=== PATIENT | female | born 1955 | race Caucasian/White ===

== ENCOUNTER 2016-05-09 18:01 | Emergency (ER) | payer OTHER, MEDICAID ==
[~2016-05-09] VITALS: Ht 162.6 cm; Wt 80.0 kg
[~2016-05-09 18:01] MED LIST: ACET325T PO; AMBI10TA PO; AMLO10TA2 PO; B-COCAP9 PO; BUPR150XL PO; CHEL50TA PO; CITRTAB7 PO; CYCL1TAB29 PO; DOXE50CA3 PO; ENOX40P SQ; GEMF600 PO; HYDR-3534 PO; HYDR-3583 PO; LISI-515 PO; LYRI100C PO; MAGN250T2 PO; METF1000 PO; MULT1TAB84 PO; NEXI40CA PO; OMEG100010 PO; OXYB5TAB10 PO; PRAV40TA2 PO; SITA1TAB2 PO; TRAM50TA PO; VITA100018 PO; WALKER WHEELS/F1 MIS
[2016-05-09 18:05] VITALS: BP 118/93; PULSE 104; RESP 16; TEMP 98.7; O2SAT 95
== END 2016-05-09 21:15 | disposition left against medical advice (07) ==
LOC: NED 18:01
DX: M79.89 Other specified soft tissue disorders (principal)
CPT/HCPCS: 99281

== ENCOUNTER 2016-05-09 21:42 | Emergency (ER) | payer OTHER, MEDICAID ==
[~2016-05-09] VITALS: Ht 162.6 cm; Wt 81.3 kg
[2016-05-09 21:59] VITALS: BP 152/73; PULSE 104; RESP 16; TEMP 98.6; O2SAT 96
[2016-05-10 01:33] LABS: AUTOMATED NEUTROPHIL # 3.4 TH/MM3 (1.8-7.7); BASOPHIL % 0.4 % (0.0-2.0); EOSINOPHIL # 0.1 TH/MM3 (0-0.4); EOSINOPHIL % 2.1 % (0.0-4.0); HEMATOCRIT 33.8 % (35.0-46.0); HEMO FLAGS DIFF FINAL; LYMPH % 35.7 % (9.0-44.0); LYMPHOCYTE # 2.4 TH/MM3 (1.0-4.8); MEAN CELL VOLUME 82.6 FL (80.0-100.0); MEAN CORPUSCULAR HEMOGLOBIN 27.5 PG (27.0-34.0); MEAN CORPUSCULAR HGB CONC 33.2 % (32.0-36.0); MONO % 11.8 % (0.0-8.0); PLATELET COUNT 419 TH/MM3 (150-450); RED BLOOD COUNT 4.09 MIL/MM3 (4.00-5.30); RED CELL DISTRIBUTION WIDTH 13.6 % (11.6-17.2); WHITE BLOOD COUNT 6.7 TH/MM3 (4.0-11.0)
[2016-05-10 01:43] LABS: BICARBONATE 26.3 MEQ/L (21.0-32.0)
[2016-05-10 02:20] VITALS: BP 152/85; PULSE 92; RESP 16; O2SAT 96
--- NOTE | 2016-05-10 02:37 | PD ---
HPI Chief Complaint: Wound/Suture/Staple Re-Check Time Seen by Provider: 01:00 Travel History International Travel<30 days: No Contact w/Intl Traveler<30days: No Traveled to known affect area: No History of Present Illness HPI 60-year-old female presents to the emergency department by private transportation the care of her spouse for evaluation of pain and swelling localized to the right ankle overlying the lateral malleolus. 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 Patient underwent surgery October 2015 in April 2016 due to complications associated with this remote ankle injury. Patient was recently discharged from the hospital after surgical removal of plates and screws from the right ankle. Patient completed a course of outpatient IV vancomycin May 05; patient has 4 additional days of vancomycin available to be administered IV via her PICC line but has not used this medication. Patient has not been able to supposedly get into her managing physicians. Patient supposedly had her home health nurse contact her managing provider is Dr. Wallace her orthopedist and Dr. Quinones her infectious disease specialist but did not call the providers herself once she started noticing problems again with her ankle. Patient is diabetic. Patient has had no fever or chills. No ascending erythema. No groin pain. The patient rates her pain 10 over 10 intensity. PFSH Past Medical History Narrative Medical Lovenox, anxiety depression, dyslipidemia, diabetes, hypertension, ankle fracture, osteomyelitis right ankle, fibromyalgia, headache, peptic ulcer disease; no tobacco use no alcohol use; nursing notes reviewed Hx Anticoagulant Therapy: Yes (LOVENOX SQ) Arthritis: Yes Asthma: No Autoimmune Disease: No Anxiety: Yes Depression: Yes Heart Rhythm Problems: No Cancer: No Cardiovascular Problems: Yes High Cholesterol: Yes Chemotherapy: No Chest Pain: No Congestive Heart Failure: No COPD: No Cerebrovascular Accident: No Diabetes: Yes Patient Takes Glucophage: Yes Diminished Hearing: No Endocrine: No Fibromyalgia: Yes Gastrointestinal Disorders: Yes (GERD) GERD: No Genitourinary: No Headaches: Yes Hiatal Hernia: Yes Hypertension: Yes Immune Disorder: No Kidney Stones: No Musculoskeletal: Yes Neurologic: Yes Psychiatric: Yes Reproductive: No Respiratory: No Immunizations Current: Yes Migraines: Yes Radiation Therapy: No Renal Failure: No Seizures: No Sickle Cell Disease: No Sleep Apnea: No Thyroid Disease: No Ulcer: Yes (peptic) ?: Not Menopausal: Yes Past Surgical History Abdominal Surgery: No AICD: No Arteriovenous Shunt: No Cardiac Surgery: No Ear Surgery: No Endocrine Surgery: No Eye Surgery: No Genitourinary Surgery: No Gynecologic Surgery: Yes Hysterectomy: No Insulin Pump: No Joint Replacement: No Oral Surgery: No Pacemaker: No Thoracic Surgery: No Tonsillectomy: Yes Other Surgery: Yes Social History Alcohol Use: No (NONE) Tobacco Use: No (FORMER) Substance Use: No Allergies-Medications (Allergen,Severity, Reaction): Coded Allergies: Naproxen (Verified Allergy, Severe, Anaphylaxis, 05/10/16) Sulfa (Verified Allergy, Severe, unknown, 05/10/16) Reported Meds & Prescriptions Reported Meds & Active Scripts Active Walker with Front Wheels (Device) 1 Mis Mis 1 Ea .ROUTE DIRECTED Hydrocodone-Acetaminophen 10-325 mg Tab 1 Tab PO Q6H PRN Lovenox Inj (Enoxaparin Sodium) 40 Mg/0.4 Ml Syr 40 Mg SQ Q24H Reported Ditropan (Oxybutynin Chloride) 5 Mg Tab 2.5 Mg PO DAILY Lisinopril 20 Mg Tab 20 Mg PO BID 1st dose at 530pm 2nd dose at 1030pm Amlodipine (Amlodipine Besylate) 10 Mg Tab 10 Mg PO DAILY Doxepin (Doxepin HCl) 50 Mg Cap 50 Mg PO HS Ambien (Zolpidem Tartrate) 10 Mg Tab 10 Mg PO HS PRN Lortab (Hydrocodone-Acetaminophen) 7.5-325 Mg Tab 1 Tab PO Q8HR PRN Tramadol (Tramadol HCl) 50 Mg Tab 50 Mg PO Q6H PRN Flexeril (Cyclobenzaprine HCl) 10 Mg Tab 10 Mg PO TID Wellbutrin Xl 24 HR (Bupropion HCl) 150 Mg Tab 150 Mg PO BID Vitamin D3 (Cholecalciferol) 1,000 Unit Tab 1,000 Units PO DAILY Citracal + D3 Maximum (Calcium Citrate-Vitamin D) 315-250 Mg-Unit Tab 1 Tab PO DAILY Nexium (Esomeprazole DR) 40 Mg Capdr 40 Mg PO DAILY Lopid (Gemfibrozil) 600 Mg Tab 600 Mg PO BIDAC Take 30 minutes prior to breakfast and dinner Lyrica (Pregabalin) 100 Mg Cap 100 Mg PO TID Magnesium 250 Mg Tab 250 Mg PO DAILY Metformin (Metformin HCl) 1,000 Mg Tab 1,000 Mg PO BIDPC With meals Multivitamin Adults (Multiple Vitamins W/ Minerals) 1 Tab 1 Tab PO DAILY [place] 3 1000 mg ([place]-3 Fatty Acids) 1 Cap Cap 1 Cap PO DAILY Pravastatin 40 Mg Tab 80 Mg PO HS Januvia (Sitagliptin Phosphate) 100 Mg Tab 100 Mg PO DAILY Super B-Complex (B-Complex W/Biotin & Folic Acid) 1 Cap 1 Cap PO DAILY Zinc (Zinc Gluconate) 50 Mg Tab 1 Tab PO DAILY Acetaminophen 325 Mg Tab 650 Mg PO BID PRN Narrative Medication vancomycin 1.25 GM ivpb daily PICC Review of Systems Except as stated in HPI: all other systems reviewed are Neg General / Constitutional: No: Fever, Chills Cardiovascular: No: Chest Pain or Discomfort Respiratory: No: Shortness of Breath Gastrointestinal: No: Vomiting Genitourinary: No: Flank Pain Musculoskeletal: Positive: Edema (right ankle), No: Myalgias, Arthralgias Skin: No Rash Hematologic/Lymphatic: No: Lymph Node Enlargement Physical Exam Narrative GENERAL: Well-developed well-nourished female in no acute distress no respiratory distress SKIN: Warm and dry. HEAD: Normocephalic. EYES: No scleral icterus. No injection or drainage. NECK: Supple, trachea midline. No JVD or lymphadenopathy. CARDIOVASCULAR: Regular rate and rhythm without murmurs, gallops, or rubs. RESPIRATORY: Breath sounds equal bilaterally. No accessory muscle use. GASTROINTESTINAL: Abdomen soft, non-tender, nondistended. MUSCULOSKELETAL: No cyanosis, or edema. Attention right lower extremity overlying the lateral malleolus there is a 7 cm linear postoperative wound with secondary healing dried crusting noted no purulent drainage mild erythema and mild focal induration with minimal tenderness to palpation no crepitus no fluctuance. Dorsalis pedis pulse 2+ to palpation. BACK: Nontender without obvious deformity. No CVA tenderness. Data Data Last Documented VS Vital Signs Date Time Temp Pulse Resp B/P Pulse Ox O2 Delivery O2 Flow Rate FiO2 05/10/16 02:20 92 16 152/85 96 Room Air 05/09/16 21:59 98.6 Orders Complete Blood Count With Diff (05/10/16 01:00) Basic Metabolic Panel (Bmp) (05/10/16 01:00) Wound Culture And Gram Stain (05/10/16 01:00) ^ Saline Lock (05/10/16 01:00) Ct Ankle W Iv Contrast (05/10/16 ) Labs Laboratory Tests Test 05/10/16 01:15 White Blood Count 6.7 TH/MM3 Red Blood Count 4.09 MIL/MM3 Hemoglobin 11.2 GM/DL Hematocrit 33.8 % Mean Corpuscular Volume 82.6 FL Mean Corpuscular Hemoglobin 27.5 PG Mean Corpuscular Hemoglobin 33.2 % Concent Red Cell Distribution Width 13.6 % Platelet Count 419 TH/MM3 Mean Platelet Volume 7.3 FL Neutrophils (%) (Auto) 50.0 % Lymphocytes (%) (Auto) 35.7 % Monocytes (%) (Auto) 11.8 % Eosinophils (%) (Auto) 2.1 % Basophils (%) (Auto) 0.4 % Neutrophils # (Auto) 3.4 TH/MM3 Lymphocytes # (Auto) 2.4 TH/MM3 Monocytes # (Auto) 0.8 TH/MM3 Eosinophils # (Auto) 0.1 TH/MM3 Basophils # (Auto) 0.0 TH/MM3 CBC Comment DIFF FINAL Differential Comment Sodium Level 139 MEQ/L Potassium Level 4.0 MEQ/L Chloride Level 103 MEQ/L Carbon Dioxide Level 26.3 MEQ/L Anion Gap 10 MEQ/L Blood Urea Nitrogen 9 MG/DL Creatinine 0.65 MG/DL Estimat Glomerular Filtration 94 ML/MIN Rate Random Glucose 177 MG/DL Calcium Level 9.5 MG/DL MDM Medical Decision Making Medical Screen Exam Complete: Yes Emergency Medical Condition: Yes Medical Record Reviewed: Yes Interpretation(s) CBC with automated differential: Values normal range Metabolic panel: Values grossly within normal range CT right ankle: INDINGS: There is some induration of the subcutaneous fat along the lateral aspect of the leg at site of hardware removal. No drainable fluid collections seen. Deformity of the fibula corresponding to the screw tracks. No destructive lesions seen. No retained radiopaque foreign bodies. CONCLUSION: Subcutaneous soft tissue swelling lateral aspect of leg. No drainable fluid collections. Ahsan Torres MD on May 10, 2016 at 2:57 Board Certified Radiologist. This report was verified electronically. Differential Diagnosis Ankle pain, cellulitis, abscess, septic arthritis, osteomyelitis, chronic pain syndrome Narrative Course 60-year-old female presents to the emergency department with mild erythema with focal induration at the postop site without active drainage or purulent drainage and mild tenderness to direct palpation with neighboring soft tissue edema no ascending erythema. No increased warmth. No crepitus. No fluctuance. Imaging studies ordered along with basic labs there is no drainage to obtain a wound culture. Diagnosis Primary Impression: Right ankle swelling Additional Impression: Cellulitis Qualified Code: L03.115 - Cellulitis of right lower extremity Referrals: Infectious Disease Specialist 2 days Orthopedist 2 days Patient Instructions: General Instructions Additional Instructions: elevate foot complete course of antibiotic recheck x 1 day in the ED or for any concerns Take acetaminophen/Tylenol as needed for fever 100.4F or greater Med/Other Pt SpecificInfo: No Change to Meds Disposition: 01 DISCHARGE HOME Condition: Stable Nay Morel MD May 10, 2016 02:37
--- NOTE | 2016-05-10 03:05 | RADHPO ---
EXAM DATE/TIME: 05/10/2016 02:07 [facility] COMPARISON: CT ANKLE RIGHT W CONTRAST, October 28, 2015, 14:27. INDICATIONS : Lateral right ankle hardware removed one month ago. Redness and swelling at incision site for one wee k. IV CONTRAST: 95 cc Omnipaque 300 (iohexol) IV RADIATION DOSE: 6.13 CTDIvol (mGy) MEDICAL HISTORY : Hypertension. Diabetes SURGICAL HISTORY : Right ankle fracture repair. ENCOUNTER: Initial ACUITY: 4 - 6 months PAIN SCALE: 7/10 LOCATION: Right ankle TECHNIQUE: Volumetric scanning of the ankle was performed. Using automated exposure control and adjustment of t he mA and/or kV according to patient size, radiation dose was kept as low as reasonably achievable to obtain optimal diagnostic quality images. FINDINGS: There is some induration of the subcutaneous fat along the lateral aspect of the leg at site of hardw are removal. No drainable fluid collections seen. Deformity of the fibula corresponding to the scre w tracks. No destructive lesions seen. No retained radiopaque foreign bodies. CONCLUSION: Subcutaneous soft tissue swelling lateral aspect of leg. No drainable fluid collections. Ahsan Torres MD on May 10, 2016 at 2:57 Board Certified Radiologist. This report was verified electronically.
[2016-05-10 04:05] VITALS: BP 150/72; PULSE 92; RESP 18; O2SAT 96
== END 2016-05-10 04:06 | disposition home or self-care (01) ==
LOC: PHED 21:42
DX: M25.471 Effusion, right ankle (principal); L03.115 Cellulitis of right lower limb; E11.9 Type 2 diabetes mellitus without complications; I10 Essential (primary) hypertension; E78.00 Pure hypercholesterolemia, unspecified
CPT/HCPCS: 73701; 80048; 85025

== ENCOUNTER 2016-05-19 15:54 | Inpatient (IN) | payer OTHER, MEDICAID, MEDICARE ==
[~2016-05-19] VITALS: Ht 162.6 cm; Wt 81.6 kg
[2016-05-19 16:15] VITALS: BP 115/73; PULSE 115; RESP 18; TEMP 99.3; O2SAT 95
[2016-05-19] MEDS ORDERED: CIPR250T52 PO (16:53)
[2016-05-19] MEDS ORDERED: CEFU1TAB20 PO (16:53)
[2016-05-19 17:22] VITALS: O2SAT 97
--- NOTE | 2016-05-19 17:28 | PD ---
HPI Chief Complaint: Skin Problem Time Seen by Provider: 17:05 Travel History International Travel<30 days: No Contact w/Intl Traveler<30days: No Traveled to known affect area: No History of Present Illness HPI 60-year-old female complains of increasing pain swelling and redness right ankle. Patient status post right ankle surgery which required placement screw in the past. Patient subsequently developed osteomyelitis of the distal fibula. Patient underwent surgery in October 2015 and the April 2016. Patient has surgery for Surgical removed of the plate and screw on the right ankle. Patient was put on IV antibiotics including vancomycin in the hospital and outpatient via PICC line. Patient just finished IV vancomycin on May 13. Patient was seen by Dr. Wallace on May 13 and put on Cipro. Patient was seen by Dr. Quinones, infectious disease on May 15 and cefuroxime was added to the antibiotic regimen. Patient states that she has increasing pain swelling and redness of right ankle since then. Patient states the pain is severe pain burning pain localized lateral aspect the right ankle. Patient denies any pain radiation. On a scale of 1-10 the pain is a 10. PFSH Past Medical History Hx Anticoagulant Therapy: Yes (LOVENOX SQ) Arthritis: Yes Asthma: No Autoimmune Disease: No Anxiety: Yes Depression: Yes Heart Rhythm Problems: No Cancer: No Cardiovascular Problems: Yes (HTN) High Cholesterol: Yes Chemotherapy: No Chest Pain: No Congestive Heart Failure: No COPD: No Cerebrovascular Accident: No Diabetes: Yes (TYPE 2) Patient Takes Glucophage: Yes Diminished Hearing: No Endocrine: No Fibromyalgia: Yes Gastrointestinal Disorders: Yes (GERD) GERD: No Genitourinary: No Headaches: Yes Hiatal Hernia: Yes Hypertension: Yes Immune Disorder: No Kidney Stones: No Musculoskeletal: Yes Neurologic: Yes Psychiatric: Yes Reproductive: No Respiratory: No Immunizations Current: Yes Migraines: Yes Radiation Therapy: No Renal Failure: No Seizures: No Sickle Cell Disease: No Sleep Apnea: No Thyroid Disease: No Ulcer: Yes (peptic) Tetanus Vaccination: > 5 Years Influenza Vaccination: Yes ?: Not Menopausal: Yes Past Surgical History Abdominal Surgery: No AICD: No Arteriovenous Shunt: No Cardiac Surgery: No Ear Surgery: No Endocrine Surgery: No Eye Surgery: No Genitourinary Surgery: No Gynecologic Surgery: Yes Hysterectomy: No Insulin Pump: No Joint Replacement: No Oral Surgery: No Pacemaker: No Thoracic Surgery: No Tonsillectomy: Yes Other Surgery: Yes Social History Alcohol Use: No (NONE) Tobacco Use: No (FORMER) Substance Use: No Allergies-Medications (Allergen,Severity, Reaction): Coded Allergies: Naproxen (Verified Allergy, Severe, Anaphylaxis, 05/19/16) Sulfa (Verified Allergy, Severe, unknown, 05/19/16) Reported Meds & Prescriptions Reported Meds & Active Scripts Active Walker with Front Wheels (Device) 1 Mis Mis 1 Ea .ROUTE DIRECTED Hydrocodone-Acetaminophen 10-325 mg Tab 1 Tab PO Q6H PRN Reported Cefuroxime (Cefuroxime Axetil) 500 Mg Tab 500 Mg PO BID Cipro (Ciprofloxacin HCl) 250 Mg Tab 250 Mg PO BID Ditropan (Oxybutynin Chloride) 5 Mg Tab 2.5 Mg PO DAILY Lisinopril 20 Mg Tab 20 Mg PO BID 1st dose at 530pm 2nd dose at 1030pm Amlodipine (Amlodipine Besylate) 10 Mg Tab 10 Mg PO DAILY Doxepin (Doxepin HCl) 50 Mg Cap 50 Mg PO HS Ambien (Zolpidem Tartrate) 10 Mg Tab 10 Mg PO HS PRN Lortab (Hydrocodone-Acetaminophen) 7.5-325 Mg Tab 1 Tab PO Q8HR PRN Tramadol (Tramadol HCl) 50 Mg Tab 50 Mg PO Q6H PRN Flexeril (Cyclobenzaprine HCl) 10 Mg Tab 10 Mg PO TID Wellbutrin Xl 24 HR (Bupropion HCl) 150 Mg Tab 150 Mg PO BID Vitamin D3 (Cholecalciferol) 1,000 Unit Tab 1,000 Units PO DAILY Citracal + D3 Maximum (Calcium Citrate-Vitamin D) 315-250 Mg-Unit Tab 1 Tab PO DAILY Nexium (Esomeprazole DR) 40 Mg Capdr 40 Mg PO DAILY Lopid (Gemfibrozil) 600 Mg Tab 600 Mg PO BIDAC Take 30 minutes prior to breakfast and dinner Lyrica (Pregabalin) 100 Mg Cap 100 Mg PO TID Magnesium 250 Mg Tab 250 Mg PO DAILY Metformin (Metformin HCl) 1,000 Mg Tab 1,000 Mg PO BIDPC With meals Multivitamin Adults (Multiple Vitamins W/ Minerals) 1 Tab 1 Tab PO DAILY [place] 3 1000 mg ([place]-3 Fatty Acids) 1 Cap Cap 1 Cap PO DAILY Pravastatin 40 Mg Tab 80 Mg PO HS Januvia (Sitagliptin Phosphate) 100 Mg Tab 100 Mg PO DAILY Super B-Complex (B-Complex W/Biotin & Folic Acid) 1 Cap 1 Cap PO DAILY Zinc (Zinc Gluconate) 50 Mg Tab 1 Tab PO DAILY Acetaminophen 325 Mg Tab 650 Mg PO BID PRN Review of Systems General / Constitutional: No: Fever Eyes: No: Visual changes HENT: No: Headaches Cardiovascular: No: Chest Pain or Discomfort Respiratory: No: Shortness of Breath Gastrointestinal: No: Abdominal Pain Genitourinary: No: Dysuria Musculoskeletal: Positive: Pain Skin: No Rash Neurologic: No: Weakness Psychiatric: No: Depression Endocrine: No: Polydipsia Hematologic/Lymphatic: No: Easy Bruising Physical Exam Narrative GENERAL: Well-nourished, well-developed patient. SKIN: Warm and dry. HEAD: Normocephalic. EYES: No scleral icterus. No injection or drainage. NECK: Supple, trachea midline. No JVD or lymphadenopathy. CARDIOVASCULAR: Regular rate and rhythm without murmurs, gallops, or rubs. RESPIRATORY: Breath sounds equal bilaterally. No accessory muscle use. GASTROINTESTINAL: Abdomen soft, non-tender, nondistended. MUSCULOSKELETAL: No cyanosis, or edema. BACK: Nontender without obvious deformity. No CVA tenderness. Patient has redness swelling tenderness lateral malleolus area and lateral aspect the right lower leg area. No discharge noted. Data Data Last Documented VS Vital Signs Date Time Temp Pulse Resp B/P Pulse Ox O2 Delivery O2 Flow Rate FiO2 05/19/16 19:16 94 18 160/74 96 Room Air 05/19/16 16:15 99.3 Orders Complete Blood Count With Diff (05/19/16 17:14) Comprehensive Metabolic Panel (05/19/16 17:14) Prothrombin Time / Inr (Pt) (05/19/16 17:14) Act Partial Throm Time (Ptt) (05/19/16 17:14) [place] Sedimentation Rate (05/19/16 17:14) Iv Access Insert/Monitor (05/19/16 17:14) Ecg Monitoring (05/19/16 17:14) Oximetry (05/19/16 17:14) Vancomycin Inj (Vancomycin Inj) (05/19/16 17:30) Ankle, Complete (Zmg5bst) (05/19/16 17:32) Morphine Inj (Morphine Inj) (05/19/16 19:45) Ondansetron Inj (Zofran Inj) (05/19/16 19:45) Admit To Inpatient (05/19/16 ) Vital Signs (Adult) Q4H (05/19/16 20:28) Activity Oob With Assistance (05/19/16 20:28) ^ Stone Carriage Operator / Telemetry .CONTINUOUS (05/19/16 20:28) Diet Heart Healthy (05/20/16 Breakfast) Sodium Chloride 0.9% Flush (Ns Flush) (05/19/16 20:30) Sodium Chloride 0.9% Flush (Ns Flush) (05/19/16 21:00) Basic Metabolic Panel (Bmp) (05/20/16 06:00) Complete Blood Count With Diff (05/20/16 06:00) Scd Bilateral/Knee High ELENI.BID (05/19/16 20:28) Naloxone Inj (Narcan Inj) (05/19/16 20:30) Inpatient Certification (05/19/16 ) Consult Infectious Disease (05/19/16 ) Vancomycin Consult Pharmacy (Vancomycin (05/19/16 20:30) Piperacil-Tazo 4.5 Gm Premix (Zosyn 4.5 (05/19/16 20:30) Lactobacillus Acidophilus (Lactinex) (05/20/16 09:00) Morphine Inj (Morphine Inj) (05/19/16 20:30) Bedside Glucose ELENI.AC&HS (05/19/16 20:30) ^ Blood Glucose Goal (Criteria (05/19/16 20:30) ^ Hypoglycemia 51 - 69 Mg/Dl (05/19/16 20:30) ^ Hypoglycemia 50 Mg/Dl Or < (05/19/16 20:30) ^ Notify Dr: Other (05/19/16 20:30) Dextrose 50% In Jonatan (Vial) Inj (D50w (Vi (05/19/16 20:30) Glucagon Inj (Glucagon Inj) (05/19/16 20:30) Insulin Aspart Supplemtl Scale (Novolog (05/19/16 21:00) Enalaprilat Inj (Vasotec Inj) (05/19/16 20:45) Labs Laboratory Tests Test 05/19/16 17:20 White Blood Count 8.1 TH/MM3 Red Blood Count 4.26 MIL/MM3 Hemoglobin 11.9 GM/DL Hematocrit 35.5 % Mean Corpuscular Volume 83.5 FL Mean Corpuscular Hemoglobin 28.0 PG Mean Corpuscular Hemoglobin 33.5 % Concent Red Cell Distribution Width 13.4 % Platelet Count 435 TH/MM3 Mean Platelet Volume 7.6 FL Neutrophils (%) (Auto) 55.8 % Lymphocytes (%) (Auto) 32.3 % Monocytes (%) (Auto) 9.2 % Eosinophils (%) (Auto) 2.3 % Basophils (%) (Auto) 0.4 % Neutrophils # (Auto) 4.6 TH/MM3 Lymphocytes # (Auto) 2.6 TH/MM3 Monocytes # (Auto) 0.7 TH/MM3 Eosinophils # (Auto) 0.2 TH/MM3 Basophils # (Auto) 0.0 TH/MM3 CBC Comment DIFF FINAL Differential Comment Erythrocyte Sedimentation Rate 24 mm/hr Prothrombin Time 10.4 SEC Prothromb Time International 0.9 RATIO Ratio Activated Partial 25.7 SEC Thromboplast Time Sodium Level 139 MEQ/L Potassium Level 4.5 MEQ/L Chloride Level 104 MEQ/L Carbon Dioxide Level 24.5 MEQ/L Anion Gap 11 MEQ/L Blood Urea Nitrogen 11 MG/DL Creatinine 0.78 MG/DL Estimat Glomerular Filtration 76 ML/MIN Rate Random Glucose 183 MG/DL Calcium Level 9.6 MG/DL Total Bilirubin 0.2 MG/DL Aspartate Amino Transf 11 U/L (AST/SGOT) Alanine Aminotransferase 21 U/L (ALT/SGPT) Alkaline Phosphatase 95 U/L Total Protein 8.1 GM/DL Albumin 4.0 GM/DL [facility] Medical Decision Making Medical Screen Exam Complete: Yes Emergency Medical Condition: Yes Medical Record Reviewed: Yes Interpretation(s) Last Impressions Ankle X-Ray 05/19/16 [id number] Signed Impressions: Service Date/Time: Thursday, May 19, 2016 17:48 - CONCLUSION: Mottled appearance with cortical irregularity of the distal fibula as above, nonspecific but osteomyelitis would be in the differential. Evidence of previous hardware removal. No definite change from the CT. Gene Ryder MD 2040 p.m. CBC within normal limit. Sedimentation rate 24. CMP within normal limit. Differential Diagnosis Differential diagnosis including cellulitis, osteomyelitis. Narrative Course 60-year-old female with increasing redness swelling tenderness lateral malleolus right ankle. Status post right ankle surgery with history of osteomyelitis. Patient just finished IV vancomycin and on Cipro and cefuroxime orally. Vancomycin 1 g IV given. Morphine 2 mg IV. Zofran 4 mg IV. Diagnosis Primary Impression: Cellulitis of right ankle Yahir Burch MD May 19, 2016 17:28
[2016-05-19] MEDS ORDERED: VANCOMYCIN INJ 1,000 MG in SODIUM CHLOR 0.9% 250 ML INJ 250 ML IV ONE (17:30)
[2016-05-19 17:33] LABS: AUTOMATED NEUTROPHIL # 4.6 TH/MM3 (1.8-7.7); BASOPHIL % 0.4 % (0.0-2.0); EOSINOPHIL # 0.2 TH/MM3 (0-0.4); EOSINOPHIL % 2.3 % (0.0-4.0); HEMATOCRIT 35.5 % (35.0-46.0); HEMO FLAGS DIFF FINAL; LYMPH % 32.3 % (9.0-44.0); LYMPHOCYTE # 2.6 TH/MM3 (1.0-4.8); MEAN CELL VOLUME 83.5 FL (80.0-100.0); MEAN CORPUSCULAR HGB CONC 33.5 % (32.0-36.0); MONO % 9.2 % (0.0-8.0); NEUT % 55.8 % (16.0-70.0); PLATELET COUNT 435 TH/MM3 (150-450); RED BLOOD COUNT 4.26 MIL/MM3 (4.00-5.30); RED CELL DISTRIBUTION WIDTH 13.4 % (11.6-17.2); WHITE BLOOD COUNT 8.1 TH/MM3 (4.0-11.0)
[2016-05-19 17:39] LABS: CHLORIDE 104 MEQ/L (98-107); POTASSIUM 4.5 MEQ/L (3.5-5.1); SODIUM (NA) 139 MEQ/L (136-145)
[2016-05-19 17:43] LABS: ANION GAP 11 MEQ/L (5-15); APTT (PATIENT) 25.7 SEC (24.3-30.1); BICARBONATE 24.5 MEQ/L (21.0-32.0); BLOOD UREA NITROGEN 11 MG/DL (7-18); INTERNATIONAL NORMALIZED RATIO 0.9 RATIO; PROTHROMBIN TIME - PATIENT 10.4 SEC (9.8-11.6)
[2016-05-19 17:46] LABS: ALT (GPT) 21 U/L (10-53); AST (GOT) 11 U/L (15-37); GLOMERULAR FILTRATION RATE 76 ML/MIN (>89)
[2016-05-19 17:47] LABS: TOTAL BILIRUBIN ADULT 0.2 MG/DL (0.2-1.0)
[2016-05-19 17:49] LABS: ALKALINE PHOSPHATASE 95 U/L (45-117)
--- NOTE | 2016-05-19 18:04 | RADHPO ---
EXAM DATE/TIME: 05/19/2016 17:48 [facility] COMPARISON: CT ANKLE RIGHT W CONTRAST, May 10, 2016, 2:07. INDICATIONS : Open wound right distal lower leg MEDICAL HISTORY : Diabetes mellitus type II. SURGICAL HISTORY : None. ENCOUNTER: Initial ACUITY: 3 days PAIN SCORE: 5/10 LOCATION: Right ankle FINDINGS: There is evidence of previously removed hardware of the distal fibula. Mottled patchy sclerosis and l ytic change seen of the distal 8 cm of the bone and overlying soft tissue swelling. There exosteal an d endosteal cortical irregularity. The findings appear fairly similar to the CT. CONCLUSION: Mottled appearance with cortical irregularity of the distal fibula as above, nonspecific but osteomye litis would be in the differential. Evidence of previous hardware removal. No definite change from e CT. Gene Ryder MD on May 19, 2016 at 18:00 Board Certified Radiologist. This report was verified electronically.
[2016-05-19 19:16] VITALS: BP 160/74; PULSE 94; RESP 18; O2SAT 96
[2016-05-19] MEDS ORDERED: MORPHINE SULFATE 4 MG/ML INJ IV PUSH ONE (19:45)
[2016-05-19] MEDS ORDERED: ONDANSETRON HCL 4 MG/2 ML VIAL IV PUSH ONE (19:45)
[2016-05-19] MEDS ORDERED: SODIUM CHLORIDE 0.9% FLUSH 5 ML FLUSH FLUSH PRN (20:30)
[2016-05-19] MEDS ORDERED: Vancomycin Consult Pharmacy 1 EA OTHER SCH (20:30)
[2016-05-19] MEDS ORDERED: DEXTROSE 50% IN WATER 50 ML VIAL(D50) IV PUSH PRN (20:30)
[2016-05-19] MEDS ORDERED: NALOXONE HCL 0.4 MG/ML AMP IV PRN (20:30)
[2016-05-19] MEDS ORDERED: GLUCAGON 1 MG/ML VIAL OTHER PRN (20:30)
[2016-05-19] MEDS ORDERED: ENALAPRILAT 2.5 MG/2 ML VIAL IV PUSH PRN (20:45)
[2016-05-19 21:00] VITALS: BP 121/61; PULSE 81; RESP 18; O2SAT 97
[2016-05-19] MEDS: INSULIN ASPART SUPPLEMENTAL SCALE SQ SCH (21:00)
[2016-05-19] MEDS: SODIUM CHLORIDE 0.9% FLUSH 5 ML FLUSH FLUSH SCH (21:43)
[2016-05-19] MEDS: PIPERACIL-TAZO 4.5 GM PREMIX 100 ML IV SCH (21:43)
[2016-05-19] MEDS: MORPHINE SULFATE 4 MG/ML INJ IV PUSH PRN (22:17)
[2016-05-19 22:55] VITALS: BP 118/68; PULSE 82; RESP 18; O2SAT 97
[2016-05-20] VITALS (7 sets, daily range): BP systolic 92–144; BP diastolic 64–80; PULSE 64–98; RESP 16–20; TEMP 96.2–98.7; O2SAT 91–97
[2016-05-20] MEDS ORDERED: CYCLOBENZAPRINE HCL 10 MG TAB PO ONE (01:30)
[2016-05-20] MEDS: MORPHINE SULFATE 4 MG/ML INJ IV PUSH PRN ×4 (02:01→18:42)
[2016-05-20] MEDS: PIPERACIL-TAZO 4.5 GM PREMIX 100 ML IV SCH ×4 (03:24→22:06)
[2016-05-20] MEDS: VANCOMYCIN 1,500 MG/NS 500 ML IV SCH ×2 (05:43)
[2016-05-20] MEDS: INSULIN ASPART SUPPLEMENTAL SCALE SQ SCH ×4 (05:47→22:23)
[2016-05-20 07:57] LABS: AUTOMATED NEUTROPHIL # 3.3 TH/MM3 (1.8-7.7); BASOPHIL % 0.4 % (0.0-2.0); EOSINOPHIL # 0.2 TH/MM3 (0-0.4); EOSINOPHIL % 2.6 % (0.0-4.0); HEMATOCRIT 32.2 % (35.0-46.0); LYMPH % 37.3 % (9.0-44.0); LYMPHOCYTE # 2.6 TH/MM3 (1.0-4.8); MEAN CELL VOLUME 83.7 FL (80.0-100.0); MEAN CORPUSCULAR HEMOGLOBIN 27.5 PG (27.0-34.0); MEAN CORPUSCULAR HGB CONC 32.9 % (32.0-36.0); NEUT % 48.7 % (16.0-70.0); PLATELET COUNT 407 TH/MM3 (150-450); RED BLOOD COUNT 3.85 MIL/MM3 (4.00-5.30); RED CELL DISTRIBUTION WIDTH 13.6 % (11.6-17.2); WHITE BLOOD COUNT 6.9 TH/MM3 (4.0-11.0)
[2016-05-20 07:58] LABS: HEMO FLAGS DIFF FINAL
[2016-05-20 08:04] LABS: POTASSIUM 3.9 MEQ/L (3.5-5.1)
[2016-05-20 08:08] LABS: BICARBONATE 26.5 MEQ/L (21.0-32.0)
[2016-05-20] MEDS: LACTOBACILLUS ACIDOPHILUS TAB PO SCH ×3 (08:58→17:01)
[2016-05-20] MEDS: SODIUM CHLORIDE 0.9% FLUSH 5 ML FLUSH FLUSH SCH ×2 (08:58→22:06)
[2016-05-20] MEDS ORDERED: ACETAMINOPHEN 325 MG TAB PO PRN (12:15)
[2016-05-20] MEDS ORDERED: ZOLPIDEM TARTRATE 10 MG TAB PO PRN (12:15)
[2016-05-20] MEDS: OXYBUTYNIN CHLORIDE 5 MG TAB PO SCH (12:52)
[2016-05-20] MEDS: LISINOPRIL 20 MG TAB PO SCH ×2 (12:52→22:07)
[2016-05-20] MEDS: PANTOPRAZOLE SOD 40 MG DELAYED RELEASE TAB PO SCH (12:52)
[2016-05-20] MEDS: buPROPion HCL 150 MG SUSTAINED RELEASE TAB PO SCH ×2 (12:52→22:07)
[2016-05-20] MEDS: PREGABALIN 100 MG CAP PO SCH ×2 (12:52→17:01)
[2016-05-20] MEDS: CYCLOBENZAPRINE HCL 10 MG TAB PO SCH ×2 (12:52→17:01)
--- NOTE | 2016-05-20 13:56 | HHI.HP ---
[facility] Service [facility] ([place], [place])ists Primary Care Physician Non-Staff Admission Diagnosis right ankle cellulitis. Rule out osteomyelitis. Diagnoses: Chief Complaint: Right ankle pain Travel History International Travel<30 Days: No Contact w/Intl Traveler <30 Da: No Traveled to Known Affected Are: No History of Present Illness Patient is a 60-year-old female with a history of right ankle surgery in the and recurrent infections of the same requiring antibiotics and surgical interventions. Patient did have osteomyelitis of the distal fibula and has been followed by Dr. Quinones and Dr. Jonas Sanchez. Previously the patient did have outpatient antibiotics both IV and was completing an oral course. She had home health evaluating her ankle and continue with wet-to-dry dressing changes as per J Ray 7 evaluation by Armin lopez. Patient says that she noted some changes in the ankle once her advised her discontinued and she called her infectious disease doctor also the home health nurse was concerned about some changes in the extremity and she was urged to come to the hospital. She has no leukocytosis and no fever however she has recently completed a long course of antibiotics. At this point patient is seen in the room with severe pain and burning around the leg which is relieved with her home narcotics and she is tearful and anxious that her ankle may be reinfected. Patient did have x-ray done which on my review does show some bony changes which will need to be followed by CT 2 also out abscess. For these reasons the patient was admitted to the hospital Past Family Social History Past Medical History Fibromyalgia Hypertension Polypharmacy Hyperlipidemia Chronic pain Diabetes mellitus type 2 Dyspepsia Allergies: Coded Allergies: Naproxen (Verified Allergy, Severe, Anaphylaxis, 05/19/16) Sulfa (Verified Allergy, Severe, unknown, 05/19/16) Physical Exam Vital Signs Vital Signs Date Time Temp Pulse Resp B/P Pulse Ox O2 Delivery O2 Flow Rate FiO2 05/20/16 12:15 97.3 92 17 139/72 93 05/20/16 08:23 96.5 88 17 92/80 91 05/20/16 04:00 98.7 95 18 109/64 92 05/20/16 02:00 64 05/20/16 00:05 85 18 97 05/20/16 00:00 97.3 95 18 144/79 94 05/20/16 00:00 97.3 95 18 144/79 94 05/19/16 22:55 82 18 118/68 97 Room Air 05/19/16 21:00 81 18 121/61 97 Room Air 05/19/16 19:16 94 18 160/74 96 Room Air 05/19/16 17:22 97 Room Air 05/19/16 16:15 99.3 115 18 115/73 95 Physical Exam GENERAL: This is a well-nourished, well-developed patient, in no apparent distress. SKIN: No rashes, ecchymoses or lesions. Cool and dry. HEAD: Atraumatic. Normocephalic. No temporal or scalp tenderness. EYES: Pupils equal round and reactive. Extraocular motions intact. No scleral icterus. No injection or drainage. ENT: Nose without bleeding, purulent drainage or septal hematoma. Throat without erythema, tonsillar hypertrophy or exudate. Uvula midline. Airway patent. NECK: Trachea midline. No JVD or lymphadenopathy. Supple, nontender, no meningeal signs. CARDIOVASCULAR: Regular rate and rhythm without murmurs, gallops, or rubs. RESPIRATORY: Clear to auscultation. Breath sounds equal bilaterally. No wheezes , rales, or rhonchi. GASTROINTESTINAL: Abdomen soft, non-tender, nondistended. No hepato-splenomegaly , or palpable masses. No guarding. MUSCULOSKELETAL: Mild right ankle erythema and dry open area above the lateral malleolus. Other 3 Extremities without clubbing, cyanosis, or edema. No joint tenderness, effusion, or edema noted. No calf tenderness. Negative Homans sign bilaterally. NEUROLOGICAL: Awake and alert. Cranial nerves II through XII intact. Motor and sensory grossly within normal limits. Five out of 5 muscle strength in all muscle groups. Normal speech. Laboratory Laboratory Tests Test 05/19/16 05/20/16 17:20 07:27 White Blood Count 8.1 6.9 Red Blood Count 4.26 3.85 Hemoglobin 11.9 10.6 Hematocrit 35.5 32.2 Mean Corpuscular Volume 83.5 83.7 Mean Corpuscular Hemoglobin 28.0 27.5 Mean Corpuscular Hemoglobin 33.5 32.9 Concent Red Cell Distribution Width 13.4 13.6 Platelet Count 435 407 Mean Platelet Volume 7.6 7.7 Neutrophils (%) (Auto) 55.8 48.7 Lymphocytes (%) (Auto) 32.3 37.3 Monocytes (%) (Auto) 9.2 11.0 Eosinophils (%) (Auto) 2.3 2.6 Basophils (%) (Auto) 0.4 0.4 Neutrophils # (Auto) 4.6 3.3 Lymphocytes # (Auto) 2.6 2.6 Monocytes # (Auto) 0.7 0.8 Eosinophils # (Auto) 0.2 0.2 Basophils # (Auto) 0.0 0.0 CBC Comment DIFF FINAL DIFF FINAL Differential Comment Erythrocyte Sedimentation Rate 24 Prothrombin Time 10.4 Prothromb Time International 0.9 Ratio Activated Partial 25.7 Thromboplast Time Sodium Level 139 141 Potassium Level 4.5 3.9 Chloride Level 104 105 Carbon Dioxide Level 24.5 26.5 Anion Gap 11 10 Blood Urea Nitrogen 11 11 Creatinine 0.78 0.65 Estimat Glomerular Filtration 76 94 Rate Random Glucose 183 124 Calcium Level 9.6 8.8 Total Bilirubin 0.2 Aspartate Amino Transf 11 (AST/SGOT) Alanine Aminotransferase 21 (ALT/SGPT) Alkaline Phosphatase 95 Total Protein 8.1 Albumin 4.0 Result Diagram: 05/20/1672605/20/16726 Imaging Last Impressions Ankle X-Ray 05/19/161731 Signed Impressions: Service Date/Time: Thursday, May 19, 2016 17:48 - CONCLUSION: Mottled appearance with cortical irregularity of the distal fibula as above, nonspecific but osteomyelitis would be in the differential. Evidence of previous hardware removal. No definite change from the CT. Gene Ryder MD Assessment and Plan Problem List: (1) Right ankle swelling ICD Code: M25.471 Status: Acute Plan: Patient with chronic trouble with her right ankle. We'll continue with CT of the ankle to rule out abscess. ID consultation pending Continue IV vancomycin and Zosyn Patient also with chronic pain from fibromyalgia which we will continue her home medications (2) DM2 (diabetes mellitus, type 2) ICD Code: E11.9 Status: Chronic Plan: The home medications, sliding scale insulin, diabetic diet (3) HTN (hypertension) ICD Code: I10 Status: Acute Plan: Continue amlodipine and lisinopril from home Assessment and Plan Plan of care to be determined by Hospital course Discussed Condition With ID , Dr sanchez Physician Certification 2 Midnight Certification Type: Admission for Inpatient Services Order for Inpatient Services The services are ordered in accordance with Medicare regulations or non- Medicare payer requirements, as applicable. In the case of services not specified as inpatient-only, they are appropriately provided as inpatient services in accordance with the 2-midnight benchmark. Estimated LOS (days): 3 3 days is the estimated time the patient will need to remain in the hospital, assuming treatment plan goals are met and no additional complications. Post-Hospital Plan: Home Christina Zaldivar MD May 20, 2016 13:56
[2016-05-20] MEDS ORDERED: IOHEXOL 350 MG/ML 10 ML VIAL (for RAD DIAG) IV ONE (15:09)
[2016-05-20] MEDS: METFORMIN HOLD POST IV CONTRAST XX SCH (16:15)
--- NOTE | 2016-05-20 16:18 | PD.CONS ---
History of Present Illness Service ID CONSULT DR MCKEON Consult Requested By Primary Care Physician Non-Staff Diagnoses: (1) Right ankle swelling (2) Cellulitis of right ankle (3) DM2 (diabetes mellitus, type 2) Review of Systems Constitutional: DENIES: Fatigue Respiratory: DENIES: Cough Cardiovascular: DENIES: Palpitations Musculoskeletal: DENIES: Muscle aches Hematologic/lymphatic: DENIES: Lymphadenopathy Immunologic/allergic: DENIES: Urticaria Neurologic: DENIES: Headache Psychiatric: DENIES: Confusion Past Family Social History Allergies: Coded Allergies: Naproxen (Verified Allergy, Severe, Anaphylaxis, 05/19/16) Sulfa (Verified Allergy, Severe, unknown, 05/19/16) Past Medical History Past Family Social History Past Medical History Fibromyalgia Hypertension Polypharmacy Hyperlipidemia Chronic pain Diabetes mellitus type 2 Dyspepsia Allergies: Coded Allergies: Naproxen (Verified Allergy, Severe, Anaphylaxis, 05/19/16) Sulfa (Verified Allergy, Severe, unknown, 05/19/16) Past Surgical History Past Surgical History Abdominal Surgery: No AICD: No Arteriovenous Shunt: No Cardiac Surgery: No Ear Surgery: No Endocrine Surgery: No Eye Surgery: No Genitourinary Surgery: No Gynecologic Surgery: Yes Hysterectomy: No Insulin Pump: No Joint Replacement: No Oral Surgery: No Pacemaker: No Thoracic Surgery: No Tonsillectomy: Yes Other Surgery: Yes Reported Medications Reported Meds & Prescriptions Reported Meds & Active Scripts Active Walker with Front Wheels (Device) 1 Mis Mis 1 Ea .ROUTE DIRECTED Hydrocodone-Acetaminophen 10-325 mg Tab 1 Tab PO Q6H PRN Reported Cefuroxime (Cefuroxime Axetil) 500 Mg Tab 500 Mg PO BID Cipro (Ciprofloxacin HCl) 250 Mg Tab 250 Mg PO BID Ditropan (Oxybutynin Chloride) 5 Mg Tab 2.5 Mg PO DAILY Lisinopril 20 Mg Tab 20 Mg PO BID 1st dose at 530pm 2nd dose at 1030pm Amlodipine (Amlodipine Besylate) 10 Mg Tab 10 Mg PO DAILY Doxepin (Doxepin HCl) 50 Mg Cap 50 Mg PO HS Ambien (Zolpidem Tartrate) 10 Mg Tab 10 Mg PO HS PRN Lortab (Hydrocodone-Acetaminophen) 7.5-325 Mg Tab 1 Tab PO Q8HR PRN Tramadol (Tramadol HCl) 50 Mg Tab 50 Mg PO Q6H PRN Flexeril (Cyclobenzaprine HCl) 10 Mg Tab 10 Mg PO TID Wellbutrin Xl 24 HR (Bupropion HCl) 150 Mg Tab 150 Mg PO BID Vitamin D3 (Cholecalciferol) 1,000 Unit Tab 1,000 Units PO DAILY Citracal + D3 Maximum (Calcium Citrate-Vitamin D) 315-250 Mg-Unit Tab 1 Tab PO DAILY Nexium (Esomeprazole DR) 40 Mg Capdr 40 Mg PO DAILY Lopid (Gemfibrozil) 600 Mg Tab 600 Mg PO BIDAC Take 30 minutes prior to breakfast and dinner Lyrica (Pregabalin) 100 Mg Cap 100 Mg PO TID Magnesium 250 Mg Tab 250 Mg PO DAILY Metformin (Metformin HCl) 1,000 Mg Tab 1,000 Mg PO BIDPC With meals Multivitamin Adults (Multiple Vitamins W/ Minerals) 1 Tab 1 Tab PO DAILY Henderson 3 1000 mg (Henderson-3 Fatty Acids) 1 Cap Cap 1 Cap PO DAILY Pravastatin 40 Mg Tab 80 Mg PO HS Januvia (Sitagliptin Phosphate) 100 Mg Tab 100 Mg PO DAILY Super B-Complex (B-Complex W/Biotin & Folic Acid) 1 Cap 1 Cap PO DAILY Zinc (Zinc Gluconate) 50 Mg Tab 1 Tab PO DAILY Acetaminophen 325 Mg Tab 650 Mg PO BID PRN Family History DM Social History Social History Alcohol Use: No (NONE) Tobacco Use: No (FORMER) Substance Use: No Allergies-Medications (Allergen,Severity, Reaction): Coded Allergies: Naproxen (Verified Allergy, Severe, Anaphylaxis, 05/19/16) Sulfa (Verified Allergy, Severe, unknown, 05/19/16) Physical Exam Vital Signs Vital Signs Date Time Temp Pulse Resp B/P Pulse Ox O2 Delivery O2 Flow Rate FiO2 05/20/16 12:15 97.3 92 17 139/72 93 05/20/16 08:23 96.5 88 17 92/80 91 05/20/16 04:00 98.7 95 18 109/64 92 05/20/16 02:00 64 05/20/16 00:05 85 18 97 05/20/16 00:00 97.3 95 18 144/79 94 05/20/16 00:00 97.3 95 18 144/79 94 05/19/16 22:55 82 18 118/68 97 Room Air 05/19/16 21:00 81 18 121/61 97 Room Air 05/19/16 19:16 94 18 160/74 96 Room Air 05/19/16 17:22 97 Room Air Physical Exam GENERAL: This is a well-nourished, well-developed patient, in no apparent distress. SKIN: No rashes, ecchymoses or lesions. Cool and dry. HEAD: Atraumatic. Normocephalic. No temporal or scalp tenderness. EYES: Pupils equal round and reactive. Extraocular motions intact. ENT: Nose without bleeding, purulent drainage or septal hematoma. Airway patent. NECK: Trachea midline. No JVD or lymphadenopathy. Supple, nontender, no meningeal signs. CARDIOVASCULAR: Regular rate and rhythm without murmurs, gallops, or rubs. RESPIRATORY: Clear to auscultation. Breath sounds equal bilaterally. No wheezes , rales, or rhonchi. GASTROINTESTINAL: Abdomen soft, non-tender, nondistended. No hepato-splenomegaly , or palpable masses. No guarding. MUSCULOSKELETAL: Extremities without clubbing, cyanosis, right ankle wound open but appears very dry some redness surrounding the incision has opened but appears superficial. NEUROLOGICAL: Awake and alert. Cranial nerves II through XII intact. Motor and sensory grossly within normal limits. Five out of 5 muscle strength in all muscle groups. Normal speech. Laboratory Laboratory Tests Test 05/19/16 05/20/16 17:20 07:27 White Blood Count 8.1 6.9 Red Blood Count 4.26 3.85 Hemoglobin 11.9 10.6 Hematocrit 35.5 32.2 Mean Corpuscular Volume 83.5 83.7 Mean Corpuscular Hemoglobin 28.0 27.5 Mean Corpuscular Hemoglobin 33.5 32.9 Concent Red Cell Distribution Width 13.4 13.6 Platelet Count 435 407 Mean Platelet Volume 7.6 7.7 Neutrophils (%) (Auto) 55.8 48.7 Lymphocytes (%) (Auto) 32.3 37.3 Monocytes (%) (Auto) 9.2 11.0 Eosinophils (%) (Auto) 2.3 2.6 Basophils (%) (Auto) 0.4 0.4 Neutrophils # (Auto) 4.6 3.3 Lymphocytes # (Auto) 2.6 2.6 Monocytes # (Auto) 0.7 0.8 Eosinophils # (Auto) 0.2 0.2 Basophils # (Auto) 0.0 0.0 CBC Comment DIFF FINAL DIFF FINAL Differential Comment Erythrocyte Sedimentation Rate 24 Prothrombin Time 10.4 Prothromb Time International 0.9 Ratio Activated Partial 25.7 Thromboplast Time Sodium Level 139 141 Potassium Level 4.5 3.9 Chloride Level 104 105 Carbon Dioxide Level 24.5 26.5 Anion Gap 11 10 Blood Urea Nitrogen 11 11 Creatinine 0.78 0.65 Estimat Glomerular Filtration 76 94 Rate Random Glucose 183 124 Calcium Level 9.6 8.8 Total Bilirubin 0.2 Aspartate Amino Transf 11 (AST/SGOT) Alanine Aminotransferase 21 (ALT/SGPT) Alkaline Phosphatase 95 Total Protein 8.1 Albumin 4.0 Result Diagram: 05/20/1672605/20/16726 Assessment and Plan Problem List: (1) DM2 (diabetes mellitus, type 2) Status: Chronic (2) HTN (hypertension) Status: Acute (3) Cellulitis of right ankle Status: Acute Plan: vanco / zosyn for now h/o MSSA in the wound in the past ct scan ordered fu to r/o abscess may be able to do po if ct scan negative fu (4) DM neuropathies Status: Acute Aleida Santos May 20, 2016 16:18
--- NOTE | 2016-05-20 16:20 | RADHPO ---
EXAM DATE/TIME: 05/20/2016 14:56 [facility] COMPARISON: CT ANKLE RIGHT W CONTRAST, May 10, 2016, 2:07. INDICATIONS : Status of right ankle abscess. Recent removal of hardware. IV CONTRAST: 95 cc Omnipaque 350 (iohexol) IV RADIATION DOSE: 6.10 CTDIvol (mGy) MEDICAL HISTORY : Hypertension. Diabetes. SURGICAL HISTORY : Orthopedic surgery. ENCOUNTER: Subsequent ACUITY: 2 weeks PAIN SCALE: 0/10 LOCATION: Right ankle TECHNIQUE: Volumetric scanning of the ankle was performed. Using automated exposure control and adjustment of t he mA and/or kV according to patient size, radiation dose was kept as low as reasonably achievable to obtain optimal diagnostic quality images. FINDINGS: Multiplanar evaluation of the right ankle again demonstrates significant soft tissue swelling and chey lulitis along the lateral aspect of the ankle extending from the lower calf into the hindfoot. Multip le defects are again noted in the fibula following recent hardware removal. There is focal cortical d isruption seen in the distal fibular shaft which appears erosive. There is no evidence of loculated fluid collections. The tibiotalar joint and subtalar joints are unremarkable. There is been no significant change since prior study. CONCLUSION: Soft tissue swelling along the lateral of the right ankle with associated fibular ero sive changes characteristic of cellulitis and osteomyelitis. There has been no interval change or evidence of developing abscess. No evidence of significant joint effusions. Ankit Griffiths MD on May 20, 2016 at 16:02 Board Certified Radiologist. This report was verified electronically.
[2016-05-20] MEDS: GEMFIBROZIL 600 MG TAB PO SCH (17:01)
[2016-05-20] MEDS: DOXEPIN HCL 50 MG CAP PO SCH (22:07)
[2016-05-20] MEDS: PRAVASTATIN SOD 80 MG TAB PO SCH (22:07)
[2016-05-21] VITALS: BP 104/64; PULSE 90; RESP 20; TEMP 97.3; O2SAT 94
[2016-05-21] MEDS: VANCOMYCIN 1,500 MG/NS 500 ML IV SCH ×2 (00:25)
[2016-05-21] MEDS: PIPERACIL-TAZO 4.5 GM PREMIX 100 ML IV SCH ×2 (03:40→08:36)
[2016-05-21] MEDS: MORPHINE SULFATE 4 MG/ML INJ IV PUSH PRN ×3 (04:50→14:55)
[2016-05-21] MEDS: INSULIN ASPART SUPPLEMENTAL SCALE SQ SCH ×4 (06:31→21:10)
[2016-05-21] MEDS: GEMFIBROZIL 600 MG TAB PO SCH ×2 (06:31→17:39)
--- NOTE | 2016-05-21 07:45 | HHI.IDPN ---
Subjective Subjective Remarks ID DR MOSS Antibiotics ZOSYN/VANCO (Aleida Santos) Remarks Drainage less No fever Antibiotics Vancomycin and Zosyn (Elise Moss MD) Allergies: Coded Allergies: Naproxen (Verified Allergy, Severe, Anaphylaxis, 05/19/16) Sulfa (Verified Allergy, Severe, unknown, 05/19/16) Review of Systems Constitutional Constitutional Remarks FEELS WELL NO COMPLAINTS (Aleida Santos) Objective . Vital Signs Date Time Temp Pulse Resp B/P Pulse Ox O2 Delivery O2 Flow Rate FiO2 05/21/16 00:00 97.3 90 20 104/64 94 05/20/16 20:00 97.3 98 20 108/69 97 05/20/16 16:29 96.2 91 16 118/71 94 05/20/16 12:15 97.3 92 17 139/72 93 05/20/16 08:23 96.5 88 17 92/80 91 05/20/16 05/20/16 05/21/16 15:00 23:00 07:00 Intake Total 750 ml 240 ml Balance 750 ml 240 ml Intake Oral 600 ml 240 ml IV Total 150 ml # Voids 3 2 # Bowel Movements 0 0 . Laboratory Tests Test 05/19/16 05/20/16 17:20 07:27 White Blood Count 8.1 TH/MM3 6.9 TH/MM3 Red Blood Count 4.26 MIL/MM3 3.85 MIL/MM3 Hemoglobin 11.9 GM/DL 10.6 GM/DL Hematocrit 35.5 % 32.2 % Mean Corpuscular Volume 83.5 FL 83.7 FL Mean Corpuscular Hemoglobin 28.0 PG 27.5 PG Mean Corpuscular Hemoglobin 33.5 % 32.9 % Concent Red Cell Distribution Width 13.4 % 13.6 % Platelet Count 435 TH/MM3 407 TH/MM3 Mean Platelet Volume 7.6 FL 7.7 FL Neutrophils (%) (Auto) 55.8 % 48.7 % Lymphocytes (%) (Auto) 32.3 % 37.3 % Monocytes (%) (Auto) 9.2 % 11.0 % Eosinophils (%) (Auto) 2.3 % 2.6 % Basophils (%) (Auto) 0.4 % 0.4 % Neutrophils # (Auto) 4.6 TH/MM3 3.3 TH/MM3 Lymphocytes # (Auto) 2.6 TH/MM3 2.6 TH/MM3 Monocytes # (Auto) 0.7 TH/MM3 0.8 TH/MM3 Eosinophils # (Auto) 0.2 TH/MM3 0.2 TH/MM3 Basophils # (Auto) 0.0 TH/MM3 0.0 TH/MM3 CBC Comment DIFF FINAL DIFF FINAL Differential Comment Erythrocyte Sedimentation Rate 24 mm/hr Laboratory Tests Test 05/19/16 05/20/16 17:20 07:27 Sodium Level 139 MEQ/L 141 MEQ/L Potassium Level 4.5 MEQ/L 3.9 MEQ/L Chloride Level 104 MEQ/L 105 MEQ/L Carbon Dioxide Level 24.5 MEQ/L 26.5 MEQ/L Anion Gap 11 MEQ/L 10 MEQ/L Blood Urea Nitrogen 11 MG/DL 11 MG/DL Creatinine 0.78 MG/DL 0.65 MG/DL Estimat Glomerular Filtration 76 ML/MIN 94 ML/MIN Rate Random Glucose 183 MG/DL 124 MG/DL Calcium Level 9.6 MG/DL 8.8 MG/DL Total Bilirubin 0.2 MG/DL Aspartate Amino Transf 11 U/L (AST/SGOT) Alanine Aminotransferase 21 U/L (ALT/SGPT) Alkaline Phosphatase 95 U/L Total Protein 8.1 GM/DL Albumin 4.0 GM/DL Physical Exam SLEEPY AROUSES PERRL CHEST CTA ABD SOFT ACTIVE BS EXT : RIGHT ANKLE IMPROVED / LESS REDNESS / NO DRAINAGE/ POOR PEDAL PULSE RLE ( Aleida Santos) Physical Exam Alert/ oriented x 3 RT Lateral wound with 80% granulation tissue (Elise Moss MD) Assessment & Plan Diagnosis: (1) DM2 (diabetes mellitus, type 2) (2) HTN (hypertension) (3) Cellulitis of right ankle Plan: vanco / zosyn stop start ancef 1 g iv q8h ct + osteo however 05/10 Ct scan did not mention osteo ortho consulted will fu h/o MSSA in the wound in the past seen exam with dr. moss (4) DM neuropathies (Aleida Santos) Remarks Stop IV Vancomycin and Zosyn Start Cefazolin Orthopedic evaluation (Elise Moss MD) Aleida Santos May 21, 2016 07:45 Elise Moss MD May 21, 2016 21:48
[2016-05-21 08:00] VITALS: BP 111/71; PULSE 89; RESP 20; TEMP 97.9; O2SAT 96
[2016-05-21] MEDS: PANTOPRAZOLE SOD 40 MG DELAYED RELEASE TAB PO SCH (08:34)
[2016-05-21] MEDS: LACTOBACILLUS ACIDOPHILUS TAB PO SCH ×3 (08:34→17:39)
[2016-05-21] MEDS: OXYBUTYNIN CHLORIDE 5 MG TAB PO SCH (08:35)
[2016-05-21] MEDS: PREGABALIN 100 MG CAP PO SCH ×3 (08:35→17:39)
[2016-05-21] MEDS: CYCLOBENZAPRINE HCL 10 MG TAB PO SCH ×3 (08:35→17:39)
[2016-05-21] MEDS: buPROPion HCL 150 MG SUSTAINED RELEASE TAB PO SCH ×2 (08:35→20:30)
[2016-05-21] MEDS: LISINOPRIL 20 MG TAB PO SCH ×2 (08:36→20:30)
[2016-05-21] MEDS: SODIUM CHLORIDE 0.9% FLUSH 5 ML FLUSH FLUSH SCH ×2 (08:54→20:31)
[2016-05-21] MEDS: ceFAZolin 1,000 MG/NS 100 ML IV SCH ×6 (10:00→23:44)
[2016-05-21 12:00] VITALS: BP 118/78; PULSE 88; RESP 20; TEMP 98.5; O2SAT 93
--- NOTE | 2016-05-21 12:22 | RADRPT ---
EXAM DATE/TIME: 05/21/2016 00:00 [facility] COMPARISON: No previous studies available for comparison. INDICATIONS : Right ankle cellulitis TECHNIQUE: Four-cuff ankle and brachial pressures were obtained. Pulse cuff waveform tracings of the ankles were recorded, and ankle-brachial indices were calculated. PRESSURES (mmHg): Brachial (arm): Right IV SITE Left 98 Ankle: Right 44 Left 52 REJI: Right 0.44 Left 0.53 PULSED CUFF WAVEFORMS: There is blunting of the waveforms at the level of the ankles bilaterally. CONCLUSION: Severe disease on the right side with moderate disease vascular disease on the left. CT angiography o f the abdominal aorta and lower extremities is recommended for further evaluation if clinically indic ated. Kale Rodriguez MD on May 21, 2016 at 12:20 Board Certified Radiologist. This report was verified electronically.
--- NOTE | 2016-05-21 14:24 | HHI.PR ---
Subjective Remarks Patient seen and examined today with Dr. Segovia. Patient denies any new complaints. Patient states that the wound is looking much better than it did yesterday. Objective Vitals Vital Signs Date Time Temp Pulse Resp B/P Pulse Ox O2 Delivery O2 Flow Rate FiO2 05/21/16 12:00 98.5 88 20 118/78 93 05/21/16 08:00 97.9 89 20 111/71 96 05/21/16 00:00 97.3 90 20 104/64 94 05/20/16 20:00 97.3 98 20 108/69 97 05/20/16 16:29 96.2 91 16 118/71 94 I/O 05/20/16 05/20/16 05/20/16 05/21/16 05/21/16 05/21/16 07:00 15:00 23:00 07:00 15:00 23:00 Intake Total 1490 ml 750 ml 240 ml Balance 1490 ml 750 ml 240 ml Intake Oral 1490 ml 600 ml 240 ml IV Total 150 ml # Voids 1 3 2 # Bowel Movements 0 0 0 Result Diagram: 05/20/1672605/20/16726 Objective Remarks GENERAL: Well-developed, well-nourished, in no acute distress. alert and orientated HEENT: Head is normocephalic without any lesions or masses noted. Facial features are symmetric. Eyes: Extraocular muscles are intact. Conjunctivae were clear. NECK: Supple without any masses. Trachea midline no deviation. No JVD, CARDIAC: Regular rhythm, regular rate. S1/S2 are heard. No murmurs gallops or rubs. LUNGS: Clear to auscultation bilaterally. No wheeze, rhonchi or rales. No use of accessory muscles on inspiration or expiration. ABDOMEN: Soft, nontender. Nondistended. Bowel sounds heard in all 4 quadrants. No organomegaly or masses. Negative rebound, negative guarding EXTREMITIES: No edema, pulses are equal bilaterally. No cyanosis or clubbing NEUROLOGY: Mood and affect appear appropriate. Cranial nerves II through XII grossly intact. Moving all extremities, speech is clear RIGHT LOWER EXTREMITY: Patient does have what appears be nice healing wound noted on the right lateral aspect of her lower extremity above the malleolus. It measures approximately 6 cm x 2 cm wide. No exudates or purulence were noted. Does have dry and pink edges. Urinary Catheter: No Vascular Central Line Catheter: No A/P Assessment and Plan Right lower extremity cellulitis, failed outpatient management Patient was be managed by Dr. Wallace and Dr. Jaeger in outpatient setting, patient was sent here by home health care because of worsening cellulitis CT scan was done which does indicate findings characteristics of cellulitis and osteomyelitis. Arterial study shows severe disease on the right side with moderate disease on the left. Recommending CT angiography of the abdominal aorta and lower extremities for further recommendations Infectious disease has been consulted and following the patient, discussed with them who indicated will need to consult orthopedic for further recommendations Consult orthopedic Dr. Wallaceand well. Continue Ancef Diabetes Continue home medications Diabetic diet Accu-Cheks with sliding scale insulin Hypertension Home medications continued Hyperlipidemia Home medications continued DVT prevention Sequential compression devices Written by Vernon Alva PA-C, acting as scribe for Dr. Segovia on 05/21/16 at 1450. The documentation accurately reflects the work and decisions performed face-to- face by Dr. Segovia on 05/21/16 at 1450. Vernon Alva May 21, 2016 14:24
[2016-05-21] MEDS ORDERED: ACETAMINOPHEN/HYDROcodone 325 MG/10 MG TAB PO PRN (15:30)
[2016-05-21] MEDS ORDERED: traMADol HCL 50 MG TAB PO PRN (15:30)
[2016-05-21 16:00] VITALS: BP 112/77; PULSE 98; RESP 18; TEMP 98.6; O2SAT 96
[2016-05-21] MEDS: METFORMIN HOLD POST IV CONTRAST XX SCH (16:15)
[2016-05-21 20:00] VITALS: BP 125/64; PULSE 93; RESP 18; TEMP 97.1; O2SAT 98
[2016-05-21] MEDS: DOXEPIN HCL 50 MG CAP PO SCH (20:30)
[2016-05-21] MEDS: PRAVASTATIN SOD 80 MG TAB PO SCH (20:30)
[2016-05-22] VITALS: BP 137/74; PULSE 87; RESP 18; TEMP 97.5; O2SAT 95
[2016-05-22] MEDS: INSULIN ASPART SUPPLEMENTAL SCALE SQ SCH ×2 (06:07→12:24)
[2016-05-22 08:00] VITALS: BP 130/70; PULSE 100; RESP 17; TEMP 97; O2SAT 96
[2016-05-22] MEDS: ceFAZolin 1,000 MG/NS 100 ML IV SCH ×2 (08:23)
[2016-05-22] MEDS: PANTOPRAZOLE SOD 40 MG DELAYED RELEASE TAB PO SCH (08:24)
[2016-05-22] MEDS: OXYBUTYNIN CHLORIDE 5 MG TAB PO SCH (08:24)
[2016-05-22] MEDS: LISINOPRIL 20 MG TAB PO SCH (08:25)
[2016-05-22] MEDS: SODIUM CHLORIDE 0.9% FLUSH 5 ML FLUSH FLUSH SCH (08:25)
[2016-05-22] MEDS: CYCLOBENZAPRINE HCL 10 MG TAB PO SCH ×2 (08:25→12:24)
[2016-05-22] MEDS: GEMFIBROZIL 600 MG TAB PO SCH (08:25)
[2016-05-22] MEDS: buPROPion HCL 150 MG SUSTAINED RELEASE TAB PO SCH (08:26)
[2016-05-22] MEDS: PREGABALIN 100 MG CAP PO SCH ×2 (08:26→12:24)
[2016-05-22] MEDS: LACTOBACILLUS ACIDOPHILUS TAB PO SCH ×2 (08:26→12:24)
[2016-05-22] MEDS ORDERED: PHARMACY ORDERED LAB XX ONE (11:45)
[2016-05-22 12:00] VITALS: BP 128/80; PULSE 96; RESP 17; TEMP 97.1; O2SAT 98
--- NOTE | 2016-05-22 12:35 | HHI.PR ---
Subjective Remarks Patient was seen multiple times throughout the day. She is feeling better. She feels the wound looks good. She denies any fever, redness, discharge. She states the pain is improving. Objective Vitals Vital Signs Date Time Temp Pulse Resp B/P Pulse Ox O2 Delivery O2 Flow Rate FiO2 05/22/16 12:00 97.1 96 17 128/80 98 05/22/16 08:00 97.0 100 17 130/70 96 05/22/16 00:41 18 05/22/16 00:00 97.5 87 18 137/74 95 05/21/16 20:00 97.1 93 18 125/64 98 05/21/16 16:00 98.6 98 18 112/77 96 I/O 05/21/16 05/21/16 05/21/16 05/22/16 05/22/16 05/22/16 07:00 15:00 23:00 07:00 15:00 23:00 Intake Total 240 ml 925 ml 100 ml 100 ml Balance 240 ml 925 ml 100 ml 100 ml Intake Oral 240 ml 925 ml IV Total 100 ml 100 ml # Voids 2 4 # Bowel Movements 0 1 Result Diagram: 05/20/1672605/20/16726 Objective Remarks GENERAL: Well-nourished, well-developed patient. SKIN: Warm and dry. She has a small wound on her right lateral malleolus which is superficial, clean base, no erythema or drainage. No ankle swelling. Ankle is nontender to palpation. HEAD: Normocephalic. EYES: No scleral icterus. No injection or drainage. NECK: Supple, trachea midline. No JVD or lymphadenopathy. CARDIOVASCULAR: Regular rate and rhythm without murmurs, gallops, or rubs. RESPIRATORY: Breath sounds equal bilaterally. No accessory muscle use. GASTROINTESTINAL: Abdomen soft, non-tender, nondistended. EXTREMITIES: No cyanosis, or edema. NEUROLOGICAL: Awake, alert, and oriented x 3. Non-focal. A/P Problem List: (1) Right ankle swelling ICD Code: M25.471 Status: Acute (2) DM2 (diabetes mellitus, type 2) ICD Code: E11.9 Status: Chronic (3) HTN (hypertension) ICD Code: I10 Status: Acute Assessment and Plan -Concern for nonhealing wound and rule out osteomyelitis of the right ankle. I had a detailed discussion with Dr. Wallace as well as Dr. Quinones and the patient 's PCP Dr. Mcneal. I also discussed with the radiologist Dr. Diaz. The patient clinically has no signs of wound infection. The destructive bone changes are not new on this CT, they were there on the previous CT as per Dr. Griffiths. Additionally she does not have elevation of of sedimentation rate. Given all of this together there is no indication of new infection and no indication to subject her to another long course of IV antibiotics. I talked with Dr. Quinones who recommended that the patient continue on the Cipro and Ceftin which she was started on outpatient setting and that she will follow-up the patient in 2 weeks. The patient did have an REJI while here that documented severe peripheral vascular disease on the right and moderate on the left. However she has intact dorsalis pedis pulses manually as well as by Doppler with no evidence of impending limb ischemia. She does need to have a CTA with runoff and I did offer to have that done here however the nurses having difficulty getting an AC IV at this time. The patient does not want to wait to have this done at the hospital and agrees to follow-up with her PCP next week for referral to wound care clinic as well as to vascular surgeon. I spoke with this in detail with her primary care physician Dr. Mcneal who will arrange this. I spent greater than 1 hour in coordinating discharge plans with the various consultants and multiple discussions with the patient. Letty Segovia MD May 22, 2016 12:35
[2016-05-22] MEDS ORDERED: CEFU1TAB20 PO (16:02)
[2016-05-22] MEDS ORDERED: CIPR250T52 PO (16:02)
[2016-05-22] MEDS ORDERED: TRAM50TA PO (16:02)
--- NOTE | 2016-05-22 16:40 | MB ---
cc: AUGUSTINE FLEMING DATE OF CONSULTATION: 05/22/16 REASON FOR CONSULTATION Nonhealing wound right ankle. HISTORY Ms. Dorsey is an unfortunate 60-year-old female who approximately six months ago underwent removal of an infected screw in her right ankle. Hardware was maintained and she developed worsening drainage from the wound. On 04/03/2016 she underwent repeat irrigation, debridement and removal of the entire plate about her right ankle. The patient underwent vacuum-assisted pack and four weeks of IV antibiotics. Evidently the antibiotics were discontinued and the wound opened up. The patient was seen in the emergency room on May [address] scan failed to reveal an abscess. She was then evaluated by me two days later and started on . The patient evidently was doing well with wet-to-dry dressing changes but evidently a home health care nurse told her her wound looked bad and she went back to the emergency room. She was reevaluated on May 19 and evidently admitted to the hospital on May. Evidently the patient had a CT scan which once again revealed no evidence of drainable fluid collection or evidence of fracture but it did however reveal questionable changes of osteomyelitis. The patient then also underwent an arterial Doppler study which revealed peripheral vascular disease with decreased ABIs. The undersigned has been consulted for orthopedic evaluation and treatment. PAST MEDICAL HISTORY 1. Fibromyalgia. 2. Hypertension. 3. Hyperlipidemia. 4. Diabetes type 2. 5. Peptic ulcer disease. ALLERGIES NAPROSYN, SULFA. PAST SURGICAL HISTORY 1. ORIF right ankle in the past. 2. Removal of a deep screw December,. 3. Removal of plate, application of vacuum-assisted pack 04/03/2017. MEDICATIONS 1. Tylenol. 2. Lisinopril. 3. Pregabalin. 4. Bupropion. 5. Doxepin. 6. Oxybutynin. 7. Zolpidem. 8. Metformin. 9. Cefuroxime. 10. Cyclobenzaprine. 11. Amlodipine. 12. Gemfibrozil. 13. Pravastatin. 14. B-complex. 15. Multivitamin. 16. Hydrocodone. ALLERGIES STATED, NAPROSYN AND SULFA. PHYSICAL EXAMINATION VITAL SIGNS: The patient has a temperature of 97.1. She has a blood pressure of 128/80. She has a heart rate of 17. She has a pulse oximetry of 98. Examination of the wound does reveal it to be granulating in. There is no ascending erythema. Ankle dorsiflexion, plantar flexion to 15 degrees. Dorsalis pedis and posterior tibial pulses are palpable. There are no signs or symptoms of deep venous thrombosis. STUDIES CT scan 05/20/2016 does reveal evidence of changes consistent with osteomyelitis but no drainable fluid collection. Arterial segmental Doppler study 05/21/2016 reveals severe peripheral vascular disease. REJI right 44, left 53. ASSESSMENT 1. Nonhealing wound right ankle. 2. Possible chronic osteomyelitis. 3. Peripheral vascular disease. PLAN 1. I had a detailed discussion with the patient regarding the nature of the diagnosis and treatment options. At this point, I would recommend wet-to-dry dressing changes twice a day. 2. I would recommend continuation of antibiotic per Infectious Disease. I had put her on Septra but evidently Dr. Quinones wants her on Ceftin. I discussed the case with Dr. Segovia and she and I have agreed to concur with Infectious Disease. 3. The patient has been made aware of extremely poor Doppler studies and therefore will need a vascular surgery consultation. Evidently the patient would like to have this performed as an outpatient. She understands the importance of having adequate blood supply to her leg to allow the antibiotics to help the wound heal. Evidently this is desired to be done as an outpatient. The patient can be weightbearing as tolerated. I will see her back in my office in one week. Of note is the fact the patient did have an office visit yesterday and unfortunately we were not made aware that she had been admitted to the hospital. She will have an appointment for next week. All questions answered. MD SAM Solis/SORAIDA /2:39 PM /4:09 PM
== END 2016-05-22 16:40 | disposition home or self-care (01) | DRG 603 ==
LOC: PHED 15:54 → PHEDA 20:38 → PH3A 23:51
PROVIDERS: ADMIT Family Medicine; ATTEND Family Medicine
DX: L03.115 Cellulitis of right lower limb (principal); E11.40 Type 2 diabetes mellitus with diabetic neuropathy, unspecified; M86.661 Other chronic osteomyelitis, right tibia and fibula; I10 Essential (primary) hypertension; I73.9 Peripheral vascular disease, unspecified; M79.7 Fibromyalgia; E78.5 Hyperlipidemia, unspecified; G89.29 Other chronic pain; Z79.4 Long term (current) use of insulin; E78.00 Pure hypercholesterolemia, unspecified; K21.9 Gastro-esophageal reflux disease without esophagitis; M19.90 Unspecified osteoarthritis, unspecified site; Z87.11 Personal history of peptic ulcer disease
CPT/HCPCS: 73610; 73701; 80048; 80053; 82948; 85025; 85610; 85652; 85730; 93922; 96365; 96375; J0690; J1815; J2270; J2405; J2543; J3370; J7040; J7050; Q9967

== ENCOUNTER 2016-09-09 14:21 | Inpatient (IN) | payer OTHER, MEDICAID, MEDICARE ==
[~2016-09-09] VITALS: Ht 162.6 cm; Wt 87.6 kg
[~2016-09-09 14:21] MED LIST changes: -ACET325T PO; -AMBI10TA PO; -B-COCAP9 PO; -ENOX40P SQ; -HYDR-3534 PO; -HYDR-3583 PO; -MAGN250T2 PO; -MULT1TAB84 PO; -PRAV40TA2 PO; -VITA100018 PO; -WALKER WHEELS/F1 MIS
[2016-09-11] MEDS ORDERED: HYDR-3288 PO (08:23)
[2016-09-11] MEDS ORDERED: LOVA40TA PO (08:23)
[2016-09-11] MEDS ORDERED: CLON0.2T PO (08:23)
[2016-09-26] MEDS ORDERED: VITA150T PO (12:35)
[2016-09-26] MEDS ORDERED: MAGN200T PO (12:35)
[2016-09-26] MEDS ORDERED: MULTTAB67 PO (12:35)
[2016-09-26] MEDS ORDERED: ASPI-110 PO (12:47)
[2016-09-30] MEDS ORDERED: PHENYLEPH/NS 1000 MCG/10 ML SYR IV ONE (09:45)
[2016-09-30] MEDS ORDERED: ONDANSETRON HCL 4 MG/2 ML VIAL IV PUSH ONE (09:45)
[2016-09-30] MEDS ORDERED: ePHEDrine/NS 25 MG/5 ML SYR IV ONE (09:45)
[2016-09-30] MEDS ORDERED: NORMOSOL R INJ 3,000 ML IV ONE (09:45)
[2016-09-30] MEDS ORDERED: PROPOFOL 200 MG/20 ML AMP IV ONE (09:45)
[2016-09-30] MEDS ORDERED: SODIUM CHLORID 0.9% 500 ML INJ 500 ML IV ONE (09:45)
[2016-09-30] MEDS ORDERED: SODIUM CHLOR 0.9% 250 ML INJ 250 ML IV ONE (09:45)
[2016-09-30] MEDS ORDERED: NEOSTIGMINE 3 MG/3 ML SYR IV ONE (09:45)
[2016-09-30] MEDS ORDERED: PHENYLEPHRINE HCL 10 MG/ML VIAL IV ONE (09:50)
[2016-09-30] MEDS ORDERED: LACTATED RINGER'S 1000 ML IV PRN (10:15)
[2016-09-30] MEDS ORDERED: POVIDONE IODINE 5% (ANTISEPSIS KIT) 4 APPLICATIONS EACH NARE PRN (10:15)
[2016-09-30] MEDS ORDERED: CHLORHEXIDINE GLUCONATE 2 % 1 PACK (2 CLOTHS) TOPICAL PRN (10:15)
[2016-09-30] MEDS ORDERED: VANCOMYCIN HCL 1000 MG ON-CALL/NS 250 ML IV SCH ×2 (10:15)
[2016-09-30] MEDS ORDERED: SODIUM CHLORID 0.9% 500 ML IV PRN (10:15)
[2016-09-30] MEDS ORDERED: INSULIN HUMAN REGULAR 1,000 UNITS/10 ML VIAL SQ PRN (10:15)
[2016-09-30] MEDS ORDERED: METOPROLOL TARTRATE 25 MG TAB PO PRN (10:15)
[2016-09-30 10:42] VITALS: BP 115/66; PULSE 88; RESP 20; TEMP 98.9; O2SAT 96
[2016-09-30 10:48] LABS: AUTOMATED NEUTROPHIL # 3.8 TH/MM3 (1.8-7.7); BASOPHIL % 0.5 % (0.0-2.0); EOSINOPHIL # 0.1 TH/MM3 (0-0.4); EOSINOPHIL % 1.1 % (0.0-4.0); HEMATOCRIT 31.6 % (35.0-46.0); HEMO FLAGS DIFF FINAL; LYMPH % 30.9 % (9.0-44.0); LYMPHOCYTE # 2.1 TH/MM3 (1.0-4.8); MEAN CELL VOLUME 82.9 FL (80.0-100.0); MEAN CORPUSCULAR HEMOGLOBIN 27.9 PG (27.0-34.0); MEAN CORPUSCULAR HGB CONC 33.6 % (32.0-36.0); MONO % 10.3 % (0.0-8.0); NEUT % 57.2 % (16.0-70.0); PLATELET COUNT 418 TH/MM3 (150-450); RED BLOOD COUNT 3.81 MIL/MM3 (4.00-5.30); RED CELL DISTRIBUTION WIDTH 15.5 % (11.6-17.2); WHITE BLOOD COUNT 6.7 TH/MM3 (4.0-11.0)
[2016-09-30 11:00] LABS: APTT (PATIENT) 26.6 SEC (24.3-30.1); PROTHROMBIN TIME - PATIENT 10.6 SEC (9.8-11.6)
[2016-09-30 11:14] LABS: BICARBONATE 23.1 MEQ/L (21.0-32.0); POTASSIUM 4.9 MEQ/L (3.5-5.1)
--- NOTE | 2016-09-30 11:26 | EKG ---
Date Performed: 09/30/2016 Time Performed: 10:30:23 PTAGE: 61 years EKG: Sinus rhythm NORMAL ECG PREVIOUS TRACING : 09/11/2016 08.13 No change from previous tracing noted. DOCTOR: Ottoniel Herron Interpretating Date/Time 09/30/2016 11:25:16
[2016-09-30] MEDS ORDERED: HEPARIN SODIUM - IV 10,000 UNITS/10 ML VIAL ONE (11:50)
[2016-09-30] MEDS ORDERED: HEPARIN SODIUM - SQ 10,000 UNITS/ML VIAL ONE (11:50)
[2016-09-30] MEDS ORDERED: BUPIVACAINE/EPINEPHRINE 0.5% 50 ML VIAL ONE (11:51)
[2016-09-30] MEDS ORDERED: PROTAMINE SULFATE 50 MG/5 ML VIAL ONE (11:51)
[2016-09-30] MEDS ORDERED: MIDAZOLAM HCL 2 MG/2 ML VIAL ONE (12:21)
[2016-09-30] MEDS ORDERED: FAMOTIDINE 20 MG/2 ML VIAL ONE (12:22)
[2016-09-30] MEDS ORDERED: ACETAMINOPHEN 1000 MG/100 ML VIAL IV ONE (12:40)
[2016-09-30] MEDS ORDERED: HYDROmorphone HCL PF 2 MG/ML VIAL ONE (12:41)
[2016-09-30] MEDS ORDERED: BUPIVACAINE/EPINEPHRINE 0.5% PF 30 ML VIAL ONE (13:18)
[2016-09-30] MEDS ORDERED: PROTAMINE SULFATE 50 MG/5 ML VIAL IV ONE (16:40)
[2016-09-30 17:59] LABS: HEMATOCRIT 30.6 % (35.0-46.0); REVIEW FLAG FINAL
[2016-09-30] MEDS ORDERED: fentaNYL CITRATE 250 MCG/5 ML AMP ONE (18:05)
[2016-09-30] MEDS ORDERED: *RESP: ALBUTEROL 2.5 MG/3 ML NEB (PRN) PERIprocedural Use ONLY NEB ONE (18:06)
[2016-09-30] MEDS ORDERED: DO NOT ADM ANY ANTICOAGULANT DRUGS PRN (18:30)
[2016-09-30] MEDS ORDERED: POTASSIUM CHLOR 20 MEQ/100 ML x 1 BAG IV PRN (18:45)
[2016-09-30] MEDS ORDERED: POTASSIUM CHLOR 20 MEQ 100 ML x 2 BAGS IV PRN (18:45)
[2016-09-30] MEDS ORDERED: ACETAMINOPHEN 325 MG TAB PO PRN (18:45)
[2016-09-30] MEDS ORDERED: MAGNESIUM SULFATE 1 GM PREMIX 100 ML IV PRN (18:45)
[2016-09-30 18:51] VITALS: BP 130/71; PULSE 102; RESP 18; TEMP 98.6; O2SAT 92
[2016-09-30 19:00] VITALS: BP 130/54; PULSE 102; PULSE 104; RESP 16; TEMP 98; O2SAT 93
[2016-09-30] MEDS ORDERED: GLUCAGON 1 MG/ML VIAL OTHER PRN (19:00)
[2016-09-30] MEDS: metFORMIN HCL 500 MG TAB PO SCH (19:00)
[2016-09-30] MEDS ORDERED: DEXT 5%-NACL 0.45% 1000 ML INJ 1,000 ML IV ONE (19:00)
[2016-09-30] MEDS ORDERED: DEXTROSE 50% IN WATER 50 ML VIAL(D50) IV PUSH PRN (19:00)
[2016-09-30] MEDS ORDERED: cloNIDine HCL 0.2 MG TAB PO PRN (19:15)
[2016-09-30] MEDS ORDERED: SODIUM CHLOR 0.9% IV PRN (19:30)
[2016-09-30] MEDS ORDERED: SODIUM PHOSPHATE IV PRN (19:30)
[2016-09-30] MEDS: LISINOPRIL 20 MG TAB PO SCH (20:40)
[2016-09-30] MEDS: MORPHINE SULFATE 4 MG/ML INJ IV PRN ×2 (20:40→22:43)
[2016-09-30] MEDS: ACETAMINOPHEN/HYDROcodone 325 MG/5 MG TAB PO PRN (20:40)
[2016-09-30] MEDS: MEDIUM DOSE INSULIN NOVOLIN REGULAR SUPPLEMENTAL SCALE SQ SCH (20:56)
[2016-09-30] MEDS ORDERED: PILL SPLITTER OTHER PRN (21:00)
[2016-09-30 21:33] VITALS: O2SAT 95
[2016-09-30] MEDS: PRAVASTATIN SOD 40 MG TAB PO SCH (22:32)
[2016-09-30] MEDS: OXYBUTYNIN CHLORIDE 5 MG TAB PO SCH (22:32)
[2016-09-30 23:00] VITALS: BP 140/48; PULSE 106; PULSE 108; RESP 18; TEMP 98.2; O2SAT 96
[2016-10-01] VITALS (7 sets, daily range): BP systolic 112–144; BP diastolic 45–66; PULSE 107–119; RESP 18–20; TEMP 98.4–99.8; O2SAT 93–96
[2016-10-01] MEDS: MORPHINE SULFATE 4 MG/ML INJ IV PRN ×8 (00:19→18:04)
[2016-10-01] MEDS: ACETAMINOPHEN/HYDROcodone 325 MG/5 MG TAB PO PRN ×5 (00:20→21:28)
[2016-10-01] MEDS: ONDANSETRON HCL 4 MG/2 ML VIAL IV PUSH PRN (05:30)
[2016-10-01 05:37] LABS: BICARBONATE 24.5 MEQ/L (21.0-32.0); MAGNESIUM 1.9 MG/DL (1.5-2.5); POTASSIUM 3.9 MEQ/L (3.5-5.1)
[2016-10-01] MEDS: MEDIUM DOSE INSULIN NOVOLIN REGULAR SUPPLEMENTAL SCALE SQ SCH ×4 (06:31→21:31)
[2016-10-01] MEDS: metFORMIN HCL 500 MG TAB PO SCH ×2 (08:33→16:16)
[2016-10-01] MEDS: PANTOPRAZOLE SODIUM 40 MG VIAL IV PUSH SCH (08:37)
[2016-10-01] MEDS: DEXT 5%-NACL 0.45% 1000 ML INJ 1,000 ML IV SCH ×2 (08:38)
[2016-10-01] MEDS: PRAVASTATIN SOD 40 MG TAB PO SCH (08:38)
[2016-10-01] MEDS: LISINOPRIL 20 MG TAB PO SCH ×2 (08:38→21:28)
[2016-10-01] MEDS: OXYBUTYNIN CHLORIDE 5 MG TAB PO SCH (08:38)
--- NOTE | 2016-10-01 09:00 | MP ---
cc: GERARDO SWEENEY M.D. DATE OF SURGERY 09/30/2016 PREOPERATIVE DIAGNOSIS Nonhealing ischemic wound right lateral ankle/limb threatening bilateral lower extremity ischemia, umbilical hernia. POSTOPERATIVE DIAGNOSIS Nonhealing ischemic wound right lateral ankle/limb threatening bilateral lower extremity ischemia. OPERATIVE PROCEDURE Aortobifemoral bypass, umbilical hernia repair. SURGEON Gerardo Sweeney MD RN DIGESTIVE SAMMY Lauren ANESTHESIA General endotracheal DESCRIPTION OF PROCEDURE With the patient in the supine position, general endotracheal anesthesia was induced. One gram of vancomycin was administered and following a protocol time-out, the abdomen was prepped with Betadine and draped in a sterile fashion employing occlusive Ioban. Skin and subcutaneous tissue at the three proposed incision sites was preemptively infiltrated with 0.5% Marcaine with epinephrine. Oblique incisions were performed along Eduar's lines within the right and left inguinal skin creases through which the common, superficial and profunda femoral arteries were circumferentially mobilized. The abdomen was entered through a midline laparotomy incision. General abdominal exploration revealed no significant intra-abdominal pathology. The small bowel was placed within an isolation bag and retracted laterally to the right. The posterior parietal peritoneum overlying the subrenal aorta was incised from the level of the left renal vein to the aortic bifurcation. The subrenal aorta was circumferentially mobilized from the origin of the renal arteries to the origin of the inferior mesenteric artery. With the retroperitoneal tunnels were dissected along the immediate anterior surfaces of each iliac artery. The patient was systemically heparinized with 5000 units. The aorta was briefly occluded cephalad to the renal arteries with a Crafoord clamp and transected several centimeters distal to the renal artery origins. Extensive calcified atherosclerotic debris mixed with organized thrombus was evacuated from the subrenal aorta, care taken to avoid renal artery embolization. The arterial lumen was copiously irrigated with heparinized saline and debrided/washed free of any debris. The aorta was then occluded immediately distal to the origin of the renal arteries with a Satinsky clamp and the suprarenal Crafoord removed rapidly restoring perfusion to the renal arteries. A 14 mm bifurcated Dacron prosthesis was chosen. It was not trimmed so as to provide minimal length of the iliac limbs to reduce potential resistance due to the small opening (7 mm diameter) limb sizes. The graft was anastomosed end-to-end to the sub renal aortic cuff with continuous 4-0 Prolene. The proximal suture line was checked to ensure hemostasis. The right and left femoral limbs were lastly delivered through the retroperitoneal tunnels. The distal anastomoses were accomplished identically as follows: Both common femoral arteries were occluded with Yasargil clips, the profunda and superficial femoral arteries occluded with double looped Vesseloops. Vertical 2-cm arteriotomies were performed along the anterior surfaces of each mid common femoral. Each limb of the graft was trimmed to appropriate length, spatulated on end and anastomosed end-to-side to the common femoral arteriotomies with continuous 6-0 Prolene. Prior to placement of the final sutures, each [place] arterial lumen and graft limb was appropriately flushed, final sutures placed and tied. Pulsatile flow was restored into each lower extremity. Robust Doppler flow was confirmed within the profunda and superficial femoral arteries bilaterally. Heparin was reversed with 20 mg of protamine and strict hemostasis assured. The posterior parietal peritoneum was secured over the aortic prosthesis with continuous 3-0 Vicryl. Midline incision was closed with continuous fascial sutures of #1 PDS. During the midline fascial closure, the oval-shaped 4 cm umbilical hernia fascial defect was debrided and secured with interrupted #1 PDS in conjunction with the midline closure. The skin edges were reapproximated with laura. The groin incisions were closed with three separate deep layers of continuous 4-0 Monocryl. Skin was reapproximated with continuous subcuticular 5-0 Monocryl. The Prevena dressings were applied to the groins and sterile gauze to the midline abdominal incision. There were no operative complications. Instrument, needle, sponge count correct x2. At the conclusion of procedure, vital signs were stable, urine output was brisk and pedal pulses were palpable bilaterally. MD CEZAR Palacio/ALESHA /8:00 AM /8:40 AM
[2016-10-01] MEDS ORDERED: traMADol HCL 50 MG TAB PO PRN (14:00)
[2016-10-01] MEDS: DOCUSATE SODIUM 100 MG CAP PO SCH (14:38)
[2016-10-01] MEDS: CYCLOBENZAPRINE HCL 10 MG TAB PO SCH ×2 (14:38→18:04)
[2016-10-01] MEDS: PREGABALIN 100 MG CAP PO SCH ×2 (14:45→18:04)
[2016-10-01] MEDS: buPROPion HCL 150 MG SUSTAINED RELEASE TAB PO SCH ×2 (14:46→21:28)
[2016-10-01] MEDS: DOXEPIN HCL 50 MG CAP PO SCH (21:27)
[2016-10-02] VITALS (25 sets, daily range): BP systolic 90–128; BP diastolic 46–90; PULSE 101–119; RESP 18–20; TEMP 97.8–99.6; O2SAT 88–99
[2016-10-02] MEDS: DEXT 5%-NACL 0.45% 1000 ML INJ 1,000 ML IV SCH (01:02)
[2016-10-02] MEDS: MORPHINE SULFATE 4 MG/ML INJ IV PRN ×2 (01:02→08:45)
[2016-10-02] MEDS: D5-1/2 NS + KCL 20 MEQ INJ 1,000 ML IV SCH ×2 (02:53→22:33)
[2016-10-02] MEDS: ACETAMINOPHEN/HYDROcodone 325 MG/5 MG TAB PO PRN ×3 (04:58→15:35)
[2016-10-02] MEDS: MEDIUM DOSE INSULIN NOVOLIN REGULAR SUPPLEMENTAL SCALE SQ SCH ×4 (06:36→21:48)
[2016-10-02] MEDS: buPROPion HCL 150 MG SUSTAINED RELEASE TAB PO SCH ×2 (07:53→21:47)
[2016-10-02] MEDS: PANTOPRAZOLE SODIUM 40 MG VIAL IV PUSH SCH (07:53)
[2016-10-02] MEDS: OXYBUTYNIN CHLORIDE 5 MG TAB PO SCH (07:53)
[2016-10-02] MEDS: LISINOPRIL 20 MG TAB PO SCH ×2 (07:53→21:00)
[2016-10-02] MEDS: PREGABALIN 100 MG CAP PO SCH ×3 (07:53→17:13)
[2016-10-02] MEDS: CYCLOBENZAPRINE HCL 10 MG TAB PO SCH ×3 (07:54→17:12)
[2016-10-02] MEDS: metFORMIN HCL 500 MG TAB PO SCH ×3 (07:54→17:13)
[2016-10-02] MEDS: DOCUSATE SODIUM 100 MG CAP PO SCH (07:54)
[2016-10-02] MEDS: PRAVASTATIN SOD 40 MG TAB PO SCH (07:54)
[2016-10-02] MEDS: MUPIROCIN 2% OINT 22 GM TUBE TOPICAL SCH ×2 (07:56→21:46)
[2016-10-02] MEDS: ENOXAPARIN SODIUM 30 MG/0.3 ML SYRINGE SQ SCH (18:12)
[2016-10-02] MEDS: KETOROLAC TROMETHAMINE 10 MG TAB PO SCH (18:55)
[2016-10-02] MEDS: DOXEPIN HCL 50 MG CAP PO SCH (21:47)
[2016-10-03] VITALS (29 sets, daily range): BP systolic 120–138; BP diastolic 58–70; PULSE 108–122; RESP 17–22; TEMP 97.7–99.1; O2SAT 93–98
[2016-10-03] MEDS ORDERED: SODIUM CHLORIDE FLUSH PRN IV FLUSH (00:15)
[2016-10-03] MEDS: MORPHINE SULFATE 4 MG/ML INJ IV PRN ×2 (03:46→21:25)
[2016-10-03] MEDS: ENOXAPARIN SODIUM 30 MG/0.3 ML SYRINGE SQ SCH ×2 (06:44→17:13)
[2016-10-03] MEDS: MEDIUM DOSE INSULIN NOVOLIN REGULAR SUPPLEMENTAL SCALE SQ SCH ×4 (06:45→21:25)
[2016-10-03] MEDS: SODIUM CHLORIDE FLUSH BID IV FLUSH SCH ×2 (08:42→21:26)
[2016-10-03] MEDS: DOCUSATE SODIUM 100 MG CAP PO SCH (08:45)
[2016-10-03] MEDS: CYCLOBENZAPRINE HCL 10 MG TAB PO SCH ×3 (08:45→17:14)
[2016-10-03] MEDS: PANTOPRAZOLE SODIUM 40 MG VIAL IV PUSH SCH (08:45)
[2016-10-03] MEDS: metFORMIN HCL 500 MG TAB PO SCH ×2 (08:46→17:13)
[2016-10-03] MEDS: PRAVASTATIN SOD 40 MG TAB PO SCH (08:46)
[2016-10-03] MEDS: buPROPion HCL 150 MG SUSTAINED RELEASE TAB PO SCH ×2 (08:46→21:26)
[2016-10-03] MEDS: KETOROLAC TROMETHAMINE 10 MG TAB PO SCH ×3 (08:46→17:14)
[2016-10-03] MEDS: PREGABALIN 100 MG CAP PO SCH ×3 (08:46→17:13)
[2016-10-03] MEDS: OXYBUTYNIN CHLORIDE 5 MG TAB PO SCH (08:47)
[2016-10-03] MEDS: LISINOPRIL 20 MG TAB PO SCH ×2 (08:48→21:26)
[2016-10-03] MEDS: MUPIROCIN 2% OINT 22 GM TUBE TOPICAL SCH ×2 (08:49→21:26)
[2016-10-03] MEDS: ONDANSETRON HCL 4 MG/2 ML VIAL IV PUSH PRN ×3 (08:49→21:24)
[2016-10-03] MEDS: ACETAMINOPHEN/HYDROcodone 325 MG/5 MG TAB PO PRN ×2 (08:50→14:50)
[2016-10-03] MEDS ORDERED: FUROSEMIDE 40 MG TAB PO ONE (13:00)
[2016-10-03] MEDS ORDERED: BISACODYL 10 MG SUPP RECTAL ONE ×2 (13:00→21:00)
[2016-10-03] MEDS: DOXEPIN HCL 50 MG CAP PO SCH (21:26)
[2016-10-04] VITALS (27 sets, daily range): BP systolic 97–150; BP diastolic 41–80; PULSE 104–128; RESP 16–22; TEMP 97.7–98.8; O2SAT 91–96
[2016-10-04] MEDS: MORPHINE SULFATE 4 MG/ML INJ IV PRN (04:12)
[2016-10-04] MEDS: ONDANSETRON HCL 4 MG/2 ML VIAL IV PUSH PRN (04:12)
[2016-10-04 04:14] LABS: HEMATOCRIT 27.8 % (35.0-46.0)
[2016-10-04 04:31] LABS: BICARBONATE 22.2 MEQ/L (21.0-32.0); POTASSIUM 4.7 MEQ/L (3.5-5.1)
[2016-10-04] MEDS: ENOXAPARIN SODIUM 30 MG/0.3 ML SYRINGE SQ SCH ×2 (06:18→17:39)
[2016-10-04] MEDS: MEDIUM DOSE INSULIN NOVOLIN REGULAR SUPPLEMENTAL SCALE SQ SCH ×4 (06:21→21:19)
[2016-10-04] MEDS: OXYBUTYNIN CHLORIDE 5 MG TAB PO SCH (08:57)
[2016-10-04] MEDS: ACETAMINOPHEN/HYDROcodone 325 MG/5 MG TAB PO PRN ×3 (08:57→20:29)
[2016-10-04] MEDS: PREGABALIN 100 MG CAP PO SCH ×3 (08:57→17:38)
[2016-10-04] MEDS: buPROPion HCL 150 MG SUSTAINED RELEASE TAB PO SCH ×2 (08:57→20:29)
[2016-10-04] MEDS: DOCUSATE SODIUM 100 MG CAP PO SCH (08:57)
[2016-10-04] MEDS: PRAVASTATIN SOD 40 MG TAB PO SCH (08:58)
[2016-10-04] MEDS: CYCLOBENZAPRINE HCL 10 MG TAB PO SCH ×3 (08:58→17:38)
[2016-10-04] MEDS: KETOROLAC TROMETHAMINE 10 MG TAB PO SCH ×3 (08:58→17:39)
[2016-10-04] MEDS: metFORMIN HCL 500 MG TAB PO SCH ×2 (08:58→17:38)
[2016-10-04] MEDS: PANTOPRAZOLE SODIUM 40 MG VIAL IV PUSH SCH (08:59)
[2016-10-04] MEDS: SODIUM CHLORIDE FLUSH BID IV FLUSH SCH ×2 (08:59→20:30)
[2016-10-04] MEDS: LISINOPRIL 20 MG TAB PO SCH ×2 (08:59→20:29)
[2016-10-04] MEDS: MUPIROCIN 2% OINT 22 GM TUBE TOPICAL SCH ×2 (09:00→21:20)
[2016-10-04] MEDS: DOXEPIN HCL 50 MG CAP PO SCH (20:29)
[2016-10-05] VITALS (26 sets, daily range): BP systolic 114–145; BP diastolic 49–78; PULSE 98–118; RESP 16–22; TEMP 97.5–98.7; O2SAT 92–97
[2016-10-05] MEDS: ENOXAPARIN SODIUM 30 MG/0.3 ML SYRINGE SQ SCH ×2 (05:36→17:54)
[2016-10-05] MEDS: MEDIUM DOSE INSULIN NOVOLIN REGULAR SUPPLEMENTAL SCALE SQ SCH ×4 (05:40→21:00)
[2016-10-05] MEDS: ONDANSETRON HCL 4 MG/2 ML VIAL IV PUSH PRN (05:41)
[2016-10-05] MEDS: PANTOPRAZOLE SODIUM 40 MG VIAL IV PUSH SCH (08:21)
[2016-10-05] MEDS: metFORMIN HCL 500 MG TAB PO SCH ×2 (08:21→17:53)
[2016-10-05] MEDS: ACETAMINOPHEN/HYDROcodone 325 MG/5 MG TAB PO PRN ×2 (08:21→21:35)
[2016-10-05] MEDS: DOCUSATE SODIUM 100 MG CAP PO SCH (08:21)
[2016-10-05] MEDS: PREGABALIN 100 MG CAP PO SCH ×3 (08:22→17:53)
[2016-10-05] MEDS: LISINOPRIL 20 MG TAB PO SCH ×2 (08:22→21:36)
[2016-10-05] MEDS: CYCLOBENZAPRINE HCL 10 MG TAB PO SCH ×3 (08:22→17:53)
[2016-10-05] MEDS: PRAVASTATIN SOD 40 MG TAB PO SCH (08:22)
[2016-10-05] MEDS: KETOROLAC TROMETHAMINE 10 MG TAB PO SCH ×2 (08:22→12:18)
[2016-10-05] MEDS: buPROPion HCL 150 MG SUSTAINED RELEASE TAB PO SCH ×2 (08:22→21:35)
[2016-10-05] MEDS: OXYBUTYNIN CHLORIDE 5 MG TAB PO SCH (08:22)
[2016-10-05] MEDS: SODIUM CHLORIDE FLUSH BID IV FLUSH SCH ×2 (08:23→21:00)
[2016-10-05] MEDS: MUPIROCIN 2% OINT 22 GM TUBE TOPICAL SCH ×2 (08:23→21:00)
[2016-10-05] MEDS: DOXEPIN HCL 50 MG CAP PO SCH (21:35)
[2016-10-06] VITALS (14 sets, daily range): BP systolic 139–144; BP diastolic 68; PULSE 102–125; RESP 14–16; TEMP 98–98.3; O2SAT 97
[2016-10-06] MEDS: ENOXAPARIN SODIUM 30 MG/0.3 ML SYRINGE SQ SCH (05:57)
[2016-10-06] MEDS: MEDIUM DOSE INSULIN NOVOLIN REGULAR SUPPLEMENTAL SCALE SQ SCH ×2 (06:27→11:33)
[2016-10-06] MEDS: ACETAMINOPHEN/HYDROcodone 325 MG/5 MG TAB PO PRN ×2 (07:40→12:33)
[2016-10-06] MEDS: PANTOPRAZOLE SODIUM 40 MG VIAL IV PUSH SCH (07:41)
[2016-10-06] MEDS: SODIUM CHLORIDE FLUSH BID IV FLUSH SCH (07:41)
[2016-10-06] MEDS: DOCUSATE SODIUM 100 MG CAP PO SCH (09:00)
[2016-10-06] MEDS: MUPIROCIN 2% OINT 22 GM TUBE TOPICAL SCH (09:00)
[2016-10-06] MEDS: LISINOPRIL 20 MG TAB PO SCH (09:00)
[2016-10-06] MEDS: CYCLOBENZAPRINE HCL 10 MG TAB PO SCH ×2 (09:23→12:33)
[2016-10-06] MEDS: buPROPion HCL 150 MG SUSTAINED RELEASE TAB PO SCH (09:24)
[2016-10-06] MEDS: PREGABALIN 100 MG CAP PO SCH ×2 (09:24→12:33)
[2016-10-06] MEDS: PRAVASTATIN SOD 40 MG TAB PO SCH (09:24)
[2016-10-06] MEDS: metFORMIN HCL 500 MG TAB PO SCH (09:24)
[2016-10-06] MEDS: OXYBUTYNIN CHLORIDE 5 MG TAB PO SCH (09:25)
--- NOTE | 2016-10-08 08:23 | MD ---
cc: AUGUSTINE FLEMING,MONIE BOYCE,GERARDO FRASER,ARMIN Christensen M.D. ADMISSION DATE: 09/30/2016 DISCHARGE DATE: 10/06/2016 PREOPERATIVE DIAGNOSES 1. Limb threatening lower extremity ischemia - nonhealing right ankle wound. 2. Hypertension. 3. Type 2 diabetes mellitus. 4. Fibromyalgia/degenerative osteoarthritis. 5. Chronic anemia. HISTORY Nine years ago this 60-year-old female underwent ORIF complex fracture right ankle. Earlier this year, plates and screws were removed from the ankle. Postprocedure the surgical wound superficially dehisced and despite aggressive outpatient wound care, the wound has remained incompletely healed. She was recently evaluated by Armin Fraser MD. He documented markedly diminished perfusion within both lower extremities felt contributory to non-healing of the ankle wound. 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 Ankle-brachial indices were severely reduced bilaterally. She was hospitalized for aortofemoral revascularization. Further historical details along with pertinent physical findings are detailed in my admission summary and wound care progress notes by Armin Fraser MD - included in the [facility]. HOSPITAL COURSE Ms. Parish was prepared for and on the day of admission and underwent aortobifemoral bypass. Her chronic umbilical hernia was repaired at the time of laparotomy incisional closure. Postprocedure she received appropriate IV fluids, analgesia and regular prehospitalization medications. Accu-Cheks were followed and she received supplemental insulin as needed. Also, DVT prophylaxis with sequential compression hose and subcu Lovenox. She has experienced no postoperative complications. Specifically she has no cardiorespiratory complaints. She has transitioned from a liquid to a diabetic diet which she is tolerating well. She has resumed normal bladder and bowel function. She is ambulating independently. Her incisional discomfort is well control with oral narcotics. DISPOSITION Ms. Parish will transfer to a [facility] re[facility] facility. She will resume her regular prehospitalization medications. I prescribed appropriate right ankle wound care and other instructions for her rehab recovery. I will see her in followup in my office in two weeks or sooner if needed. MD CEZAR Palacio/RACHEL /1:09 PM /8:08 AM
== END 2016-10-06 12:40 | DRG 271 ==
LOC: HSDI 09-30 09:39 → HCVR 09-30 18:35 → HCIN 10-02 08:37
PROVIDERS: ADMIT Surgery Vascular Surgery; ATTEND Surgery Vascular Surgery
PROC: 0WQF0ZZ Repair Abdominal Wall, Open Approach (ICD-10-PCS; 2016-09-30)
PROC: 04100JK Bypass Abdominal Aorta to Bilateral Femoral Arteries with Synthetic Substitute, Open Approach (ICD-10-PCS; principal; 2016-09-30 12:41)
DX: E11.51 Type 2 diabetes mellitus with diabetic peripheral angiopathy without gangrene (principal); I74.19 Embolism and thrombosis of other parts of aorta; I70.0 Atherosclerosis of aorta; T81.89XD Other complications of procedures, not elsewhere classified, subsequent encounter; K42.9 Umbilical hernia without obstruction or gangrene; I74.5 Embolism and thrombosis of iliac artery; I10 Essential (primary) hypertension; E78.5 Hyperlipidemia, unspecified; D53.9 Nutritional anemia, unspecified; K21.9 Gastro-esophageal reflux disease without esophagitis; M79.7 Fibromyalgia; M19.90 Unspecified osteoarthritis, unspecified site; Z79.84 Long term (current) use of oral hypoglycemic drugs; Z87.891 Personal history of nicotine dependence; Z88.2 Allergy status to sulfonamides
CPT/HCPCS: 80048; 82948; 83735; 84100; 84132; 85014; 85018; 85025; 85610; 85730; 86850; 86900; 86901; 86920; 93005; C1768; C9113; J0131; J1170; J1644; J1650; J1815; J2250; J2270; J2370; J2405; J2710; J2720; J3010; J3370; J3480; J7040; J7050; J7120; J7613

== ENCOUNTER 2016-09-11 07:26 | Day surgery (SDC) | payer OTHER, MEDICAID ==
[~2016-09-11] VITALS: Ht 162.6 cm; Wt 82.0 kg
[~2016-09-11 07:26] MED LIST changes: +ACET325T PO; +AMBI10TA PO; +B-COCAP9 PO; +CEFU1TAB20 PO; +CIPR250T52 PO; +MAGN250T2 PO; +MULT1TAB84 PO; +PRAV40TA2 PO; +VITA100018 PO; +WALKER WHEELS/F1 MIS
[2016-09-11] MEDS ORDERED: NS 1000P @30 MLS/HR (KVO) IV SCH (08:00)
[2016-09-11 08:08] VITALS: BP 113/60; PULSE 77; RESP 18; TEMP 98.7; O2SAT 96
[2016-09-11] MEDS ORDERED: HYDR-3288 PO (08:23)
[2016-09-11] MEDS ORDERED: CLON0.2T PO (08:23)
[2016-09-11] MEDS ORDERED: LOVA40TA PO (08:23)
[2016-09-11 08:37] LABS: AUTOMATED NEUTROPHIL # 4.5 TH/MM3 (1.8-7.7); BASOPHIL % 0.5 % (0.0-2.0); EOSINOPHIL # 0.1 TH/MM3 (0-0.4); EOSINOPHIL % 1.1 % (0.0-4.0); HEMATOCRIT 34.1 % (35.0-46.0); HEMO FLAGS DIFF FINAL; LYMPH % 34.5 % (9.0-44.0); LYMPHOCYTE # 2.9 TH/MM3 (1.0-4.8); MEAN CELL VOLUME 83.1 FL (80.0-100.0); MEAN CORPUSCULAR HEMOGLOBIN 27.1 PG (27.0-34.0); MEAN CORPUSCULAR HGB CONC 32.7 % (32.0-36.0); MONO % 10.8 % (0.0-8.0); NEUT % 53.1 % (16.0-70.0); PLATELET COUNT 429 TH/MM3 (150-450); RED CELL DISTRIBUTION WIDTH 15.9 % (11.6-17.2); WHITE BLOOD COUNT 8.4 TH/MM3 (4.0-11.0)
[2016-09-11 08:49] LABS: APTT (PATIENT) 25.3 SEC (24.3-30.1); INTERNATIONAL NORMALIZED RATIO 0.9 RATIO; PROTHROMBIN TIME - PATIENT 10.3 SEC (9.8-11.6)
[2016-09-11 08:54] LABS: BICARBONATE 24.1 MEQ/L (21.0-32.0)
[2016-09-11] MEDS ORDERED: HEPARIN-NS/PF INJ 500 ML ONE (09:25)
[2016-09-11] MEDS ORDERED: MIDAZOLAM HCL 2 MG/2 ML VIAL ONE (09:27)
[2016-09-11] MEDS ORDERED: HEPARIN SODIUM - IV 10,000 UNITS/10 ML VIAL ONE (09:28)
[2016-09-11] MEDS ORDERED: NITROGLYCERIN INJ 5 ML ONE (09:28)
[2016-09-11] MEDS ORDERED: VERAPAMIL HCL 5 MG/2 ML VIAL ONE (09:28)
[2016-09-11] MEDS ORDERED: IOHEXOL 350 MG/ML 100 ML BTL (for Cath Lab) OTHER ONE (10:30)
--- NOTE | 2016-09-11 10:37 | CATHPROC ---
Patient Name: BLESSING COMER Study #: [id number] Initial MD: Miah Anderson Date of : 1955 Study Date: 09/11/2016 Cardiac Catheterization Report 09/11/2016 10:37:19 AM Financial #: [id number] 1 of 11 Patient Name: BLESSING COMER Study #: [id number] Initial MD: Miah Anderson Date of : 1955 Study Date: 09/11/2016 Entire Case Report Patient Information Patient Name BLESSING COMER Date of 1955 Age 60 years Financial # [id number] Gender F AlternateID Lab Number 3 Accession # Room Number DC05 Height (in) 64.0 Height (cm) 162.6 BSA 1.87 Weight (lbs) 180.4 Weight (kg) 82.0 Patient Address/Phone Number Home Address [facility] Home Phone Number [phone] [facility] [id number] Study Information Study Number Admission Scheduled Start Study Start 91009/11/2016 09/11/2016 09/11/2016 Referring Institution Admit Source Facility Department 1 Other [facility] - Repair Tech Physician and Clinical Staff Initial Miah Castro Director Of Content Marketing Verónica Henley,RN Other cathlab, cathlab Recorder Camilla Barney,AUTOMATION TESTER TECH2 Scrub Ailin Ron,RT(R) Procedures Performed Procedure Location (Site) Vessel Name Coronary Angiograms LCA Left Coronary Coronary Angiograms RCA Right Coronary L Heart Cath Wire insertion Radial (right) Radial Art. 09/11/2016 10:37:19 AM Financial #: [id number] 2 of 11 Patient Name: BLESSING COMER Study #: [id number] Initial MD: Miah Anderson Date of : 1955 Study Date: 09/11/2016 Equipment Time Tools And Parts Attendant Description Size Mfg Part Number Used/Scraped TRANSDUCER, TRUWAVE 10:01 AUGUSTIN HENLEY * [id number] Used W/Provenance [id number] *[id number] [id number] *[id number] 10:01 Androcial PACK, CCL CUSTOM * [id number] Used 10:01 Androcial SUPPORT, ARTERIAL ADULT [id number] Used BAND, RADIAL COMPRESSION TR 10:22 [employer] MEDICAL 29CM [id number] Used LARGE 29 [id number] 10:01 [employer] WIRE, EXCHANGE 260CM 3MMJ 260CM Used *[id number] 10:01 NAMIC MANIFOLD, 4 PORT * Used *[id number] 10:01 NYCOMED OMNIPAQUE, 350 MG, 100ML 100ML [id number] Used 10:01 RetAPPs BLANKET,WARM AIR CCL * [id number] Used SHEATH, FR6 TRANSRADIAL 10:01 [employer] FR 6 RM*[id number] Used SLENDER 10CM Insurance Information Insurance Payor Medicaid, Private Health Insurance Third Democrat Third Democrat Number [employer] [facility] History: Current Medications Medication Dosage/Unit Route Frequency Last Date/Time Taken Glucophage History: Allergies Allergy Reaction Naproxen Anaphylaxis Sulfa unknown Penicillin 09/11/2016 10:37:19 AM Financial #: [id number] Patient Name: BLESSING COMER Study #: [id number] Initial MD: Miah Anderson Date of : 1955 Study Date: 017 History: Risk Factors Family History of Hypertension Dyslipidemia Previous [place] Previous Heart Failure Premature CAD Yes Yes Yes No No Prior Valve Prior PCI Prior CABG Surgery No No No Cerebrovascular Peripheral Artery Chronic Lung On Dialysis Diabetes Diabetes Therapy Disease Disease Disease No No Yes No Yes Oral History: Stress Tests Stress or Imaging Studies Performed Yes Standard Exercise Stress Test No Stress Echo No Stress Test SPECT No Stress Test CMR Stress Test CMR Result Yes Indeterminant Cardiac CTA Coronary Calcium Score No No History: Other Disease Selection Items HTN History: Other Current Smoker Method Quit No Cigarettes 4 Years Ago Comment 1/2 pack per day for 40years Labs Hgb (g/dl) Hct (%) RBC (MIL/MM3) WBC (l/cumm) Platelets (thousands) 12.00-18.00 37.00-55.00 4.80-6.20 4.80-10.80 140.00-450.00 11.1 34.1 4.1 8.4 429 Glucose (mg/dl) BUN (mg/dl) Creatinine (mg/dl) BUN:Creatinine (1:x) 60.00-110.00 8.00-20.00 0.10-9.00 10.00-20.00 182 18 0.8 22.5 09/11/2016 10:37:19 AM Financial #: [id number] Patient Name: BLESSING COMER Study #: [id number] Initial MD: Miah Anderson Date of : 1955 Study Date: 017 Na (meq/l) K (meq/l) Cl (meq/l) CO2 (mmol/L) Ca (mg/dl) 138.00-146.00 3.80-5.10 101.00-111.00 23.00-30.00 9.00-10.50 136 5 102 24.1 9.4 PT (sec) PTT (sec) INR (PTT:PT) 9.40-11.40 25.10-32.70 0.50-2.00 10.3 25.3 0.9 Medication Medication Total Dose (Bolus/Oral) Medication Total Dosage/Unit 1% XYLOCAINE 10 mL FENTANYL 25 mcg RADIAL COCKTAIL 5 mL (Bolus) VERSED 0.5 mg Medications (Bolus/Oral) Medication Time Given Dosage/Unit Administered By Reason VERSED 09/11/2016 9:58:19 AM 0.5 mg Verónica Henley 0.5 mg VERSED given in lab by Verónica Henley RN in Left Wrist via Peripheral IV. 1% XYLOCAINE 09/11/2016 9:58:40 AM 10 mL Miah Anderson 10 mL 1% XYLOCAINE given in lab by Miah Anderson in Right Radial via Subcutaneous. FENTANYL 09/11/2016 9:59:29 AM 25 mcg Verónica Henley 25 mcg FENTANYL given in lab by Verónica Henley RN in Left Wrist via Peripheral IV. RADIAL COCKTAIL 09/11/2016 10:00:52 AM 5 mL (Bolus) Miah Anderson 5 mL (Bolus) RADIAL COCKTAIL given in lab by Miah Anderson in Right Radial via Radial. Using [Cassandra ution Name]. 2.5mhverapamil,3200units heparin,200mg nitro Medication (Drip) Medication Time Given Dosage/Unit Concentration/Unit Diluent (ml) Solution IV Solutions 09/11/2016 9:28:34 AM 0 mL (IV) 500 NaCl .9 IV Solutions given in lab by Verónica Henley RN in Left Wrist via Peripheral IV. Pump/Drip Flow = 20 ml/hr using NaCl .9. 09/11/2016 10:37:19 AM Financial #: [id number] Patient Name: BLESSING COMER Study #: [id number] Initial MD: Miah Anderson Date of : 1955 Study Date: 09/11/2016 Initial Case Assessment Cardiovascular HR NIBP 82 94/59 Edema Present Skin color Skin None Normal Warm Dry Circulatory - Right Pulses Dorsalis Pedis Femoral Radial d d 2 Scale (0,1,2,3,4,d) Circulatory - Left Pulses Dorsalis Pedis Femoral Radial d d 2 Scale (0,1,2,3,4,d) Neurological State Oriented to time-place- Alert Moves all extremities person Respiration - General Respiration Rate SpO2 (%) (B/min) 13 95 09/11/2016 10:37:19 AM Financial #: [id number] Patient Name: BLESSING COMER Study #: [id number] Initial MD: Miah Anderson Date of : 1955 Study Date: 09/11/2016 Final Case Assessment Cardiovascular HR NIBP 85 106/59 Edema Present Skin color Skin None Normal Warm Dry Circulatory - Right Pulses Dorsalis Pedis Femoral Radial d d 2 Scale (0,1,2,3,4,d) Circulatory - Left Pulses Dorsalis Pedis Femoral Radial d d 2 Scale (0,1,2,3,4,d) Neurological State Oriented to time-place- Alert Moves all extremities person Respiration - General Respiration Rate SpO2 (%) (B/min) 19 93 Vitals Summary Pain Time HR NIBP SpO2 Resp Temp EtCO2 Apnea Ovi Rogers Comment Level 09:29:43 83 106/59 94.0 12 10 0 2 09:34:40 82 94/59 95.0 13 10 0 2 09:39:39 80 104/52 94.0 9 09:44:42 82 103/54 94.0 15 10 0 2 09:49:41 82 99/61 94.0 13 10 0 2 09:54:42 84 107/56 94.0 12 10 0 2 09:59:43 86 103/58 93.0 19 10 0 2 10:05:29 91 89/52 93.0 19 10 0 2 10:09:39 87 89/57 92.0 13 10 0 2 10:14:38 87 104/60 91.0 12 10 0 2 10:19:44 87 106/59 93.0 19 10 0 2 09/11/2016 10:37:19 AM Financial #: [id number] Patient Name: BLESSING COMER Study #: [id number] Initial MD: Miah Anderson Date of : 1955 Study Date: 09/11/2016 Ovi Score Summary Time Activity Resp Circ LOC Color Total Score 9:29:43 2 2 2 2 2 10 9:34:40 2 2 2 2 2 10 9:44:42 2 2 2 2 2 10 9:49:41 2 2 2 2 2 10 9:54:42 2 2 2 2 2 10 9:59:43 2 2 2 2 2 10 10:05:29 2 2 2 2 2 10 10:09:39 2 2 2 2 2 10 10:14:38 2 2 2 2 2 10 10:19:44 2 2 2 2 2 10 Ovi Score Definition Table Activity - 0 Activity - 1 Activity - 2 No Movement to Command Weak Hand Grasp Lift Head, Good Hand Grasp Respiration - 0 Respiration - 1 Respiration - 2 Apneic or Obstructed Shallow Breath, Airway Adjunct Deep Breath, Cough Freely Circulation - 0 Circulation - 1 Circulation - 2 B/P > 50% Admission B/P B/P > 20-50% Admission B/P B/P Stable X3 Level of Consciousness - 0 Level of Consciousness - 1 Level of Consciousness - 2 Not Responding Arousable On Calling Awake and Aware Color - 0 Color- 1 Color - 2 Cyanotic Lips, Nailbed, Skin Pale, Dusky [place] Or Normal Chronological Log Time Study Chronological Log 9:22:27 Patient arrived via Bed. 9:28:12 Patient Name, D.O.B, / Armband Verified By R.N. 9:28:12 Consent signed by the physician and the patient and verified by the Repair Tech staff. 9:28:13 Pre-op and post- op instructions given; patient acknowledges understanding of instructions . 9:28:15 Allens test performed on the right radial and ulnar artery. 9:28:17 Patient has been NPO for Less than 6Hrs. 9:28:18 Skin Breakdown- 9:28:20 Patient Warmer Placed on the Table. 9:28:33 A # 20 IV was noted in the Wrist (left). Grade = 0 IV Solutions given in lab by Verónica Henley RN in Left Wrist via Peripheral IV. Pump/Drip Flow = 20 ml/hr using 9:28:34 NaCl .9. 9:28:35 History and physical on the chart or being dictated. 09/11/2016 10:37:19 AM Financial #: [id number] Patient Name: BLESSIGN COMER Study #: [id number] Initial MD: Miah Anderson Date of : 1955 Study Date: 09/11/2016 Vitals capture started with the following parameters, Patient=Adult, Interval=5 min, Initial Pr phhuzj=404 mmHg, 9:29:07 Deflation Rate=5 mmHg 9:29:43 HR=83 bpm, ZAMR=910/59 mmhg, SpO2=94 %, Resp=12 B/min, Pain=0, Ovi=10, Rogers=2 9:34:40 HR=82 bpm, NIBP=94/59 mmhg, SpO2=95.0 %, Resp=13 B/min, Pain=0, Ovi=10, Rogers=2 9:34:53 Reference ECG taken Assessment: Initial Case, HR=82 BPM, NIBP=94/59 mmhg, Edema=None, Color=Normal, Skin = Warm, Dr y Right Pulses: Luis Felipe Ped=d, Femoral=d, Radial=2 9:35:37 Left Pulses: Luis Felipe Ped=d, Femoral=d, Radial=2 Neurological: State=Alert, Ox3, ORTIZ Respiration: Resp=13 B/min, SpO2=95 % 9:39:39 HR=80 bpm, GLJS=365/52 mmhg, SpO2=94.0 %, Resp=9 B/min 9:42:43 Right Radial and right groin prepped with 2% chlorhexidine, and with a 3 min. waiting time. 9:44:42 HR=82 bpm, HBYB=293/54 mmhg, SpO2=94.0 %, Resp=15 B/min, Pain=0, Ovi=10, Rogers=2 9:49:41 HR=82 bpm, NIBP=99/61 mmhg, SpO2=94 %, Resp=13 B/min, Pain=0, Ovi=10, Rogers=2 9:50:38 Pressure channel 1 zeroed. 9:54:42 HR=84 bpm, JFPH=369/56 mmhg, SpO2=94 %, Resp=12 B/min, Pain=0, Ovi=10, Rogers=2 Time Out. Correct patient, correct procedure,correct physician, power injector not loaded with contrast with surgical 9:57:52 team present. Time Out Concurred by MD, individual staff in procedure 9:58:02 Case Start 9:58:19 0.5 mg VERSED given in lab by Verónica Henley RN in Left Wrist via Peripheral IV. 9:58:40 10 mL 1% XYLOCAINE given in lab by Miah Anderson in Right Radial via Subcutaneous. 9:59:29 25 mcg FENTANYL given in lab by Verónica Henley RN in Left Wrist via Peripheral IV. 9:59:43 HR=86 bpm, HPHJ=473/58 mmhg, SpO2=93.0 %, Resp=19 B/min, Pain=0, Ovi=10, Rogers=2 9:59:54 Access site was Radial Artery. A SHEATH, FR6 TRANSRADIAL SLENDER 10CM FR 6 was advanced into the Radial (right) using the Josr fied Seldinger 10:00:03 technique. 5 mL (Bolus) RADIAL COCKTAIL given in lab by Miah Anderson in Right Radial via Radial. Katelin ahmadi [Solution Name]. 10:00:52 2.5mhverapamil,3200units heparin,200mg nitro A JR 4.0 INFINITI CATHETER FR 5 was advanced over a wire. OMNIPAQUE, 350 MG, 100ML 100ML was us ed for 10:01:34 injections. Recorded Pressure: LV, HR=91, Condition=Condition 1 10:02:52 (Left Ventricle) LV 89/2/9 Recorded Pressure: LV, Ao, HR=88, Condition=Condition 1 10:03:11 (Left Ventricle) LV 89/0/4, (Aorta) Ao 83/43/62 10:05:29 HR=91 bpm, NIBP=89/52 mmhg, SpO2=93.0 %, Resp=19 B/min, Pain=0, Ovi=10, Rogers=2 10:06:54 The RCA was injected and visualized at various angles. OMNIPAQUE, 350 MG, 100ML 100ML used . Recorded Pressure: Ao, HR=88, Condition=Condition 1 10:08:33 (Aorta) Ao 89/50/67 After removing the current catheter a JL 3.5 INFINITI CATHETER FR 5 was advanced over a WIRE, E XCHANGE 260CM 10:09:31 3MMJ 260CM. 10:09:39 HR=87 bpm, NIBP=89/57 mmhg, SpO2=92.0 %, Resp=13 B/min, Pain=0, Ovi=10, Rogers=2 10:12:10 The LCA was injected and visualized at various angles. OMNIPAQUE, 350 MG, 100ML 100ML used . 10:14:38 HR=87 bpm, TNKW=611/60 mmhg, SpO2=91.0 %, Resp=12 B/min, Pain=0, Ovi=10, Rogers=2 10:16:21 A WIRE, EXCHANGE 260CM 3MMJ 260CM was inserted via Radial (right). 09/11/2016 10:37:19 AM Financial #: [id number] Patient Name: BLESSING COMER Study #: [id number] Initial MD: Miah Anderson Date of : 1955 Study Date: 09/11/2016 10:16:36 Catheter was removed 10:18:48 Case End 10:19:44 HR=87 bpm, ZCCN=518/59 mmhg, SpO2=93.0 %, Resp=19 B/min, Pain=0, Ovi=10, Rogers=2 10:21:03 Catheter(s) removed without difficulty Radial Compression Device Used. 13 mLs of air placed in BAND, RADIAL COMPRESSION TR LARGE 29 2 9CM. Affected 10:21:04 hand 93 % O2 saturation. 10:21:56 No case complications noted. 10:21:59 Cine recording checked. 10:22:03 Bedside Report will be given. 10:22:05 Contrast Scanned 10:22:08 A Left Heart Cath was performed. Assessment: Final Case, HR=85 BPM, ZCFX=545/59 mmhg, Edema=None, Color=Normal, Skin = Warm, Dr y Right Pulses: Luis Felipe Ped=d, Femoral=d, Radial=2 10:22:19 Left Pulses: Luis Felipe Ped=d, Femoral=d, Radial=2 Neurological: State=Alert, Ox3, ORTIZ Respiration: Resp=19 B/min, SpO2=93 % 10:23:07 Vitals capture stopped. 10:26:15 Patient moved to stretcher Recorded Pressures: Condition 1 Time Chamber Pressure Manual Override (*) 10:02:52 LV 89/2/9 s/bd/ed 10:03:11 LV 89/0/4 s/bd/ed 10:03:11 Ao 83/43/62 s/d/m 10:08:33 Ao 89/50/67 s/d/m End Study - Contrast Media Used In Study Contrast Total Opened (mL) Total Used (mL) Total Wasted (mL) Omnipaque 50 50 0 End Study - Maximum Contrast Load Max Contrast Load (mL) 512.5 End Study - Radiation Exposure Fluoro Time (minutes) 5.8 09/11/2016 10:37:19 AM Financial #: [id number] Patient Name: BLESSING COMER Study #: [id number] Initial MD: Miah Anderson Date of : 1955 Study Date: 09/11/2016 End Study - Patient Disposition Complications Transferred To No Telemetry Bed 09/11/2016 10:37:19 AM Financial #: [id number]
[2016-09-11] MEDS ORDERED: MISC INFORMATION XX ONE (10:45)
--- NOTE | 2016-09-11 15:35 | EKG ---
Date Performed: 09/11/2016 Time Performed: 08:13:14 PTAGE: 60 years EKG: Sinus rhythm rSr'(V1) - probable normal variant Normal ECG PREVIOUS TRACING : 11/01/2015 15.31 Compared to prior tracing no significant change DOCTOR: Maico Billy Interpretating Date/Time 09/11/2016 15:35:38
--- NOTE | 2016-09-12 19:09 | MA ---
cc: MIAH ANDERSON DO DATE: 09/11/2016 PROCEDURE: Left heart catheterization, coronary angiogram, moderate sedation 15 minutes PREPROCEDURE DIAGNOSIS: Abnormal stress test, preop for high risk surgery. POSTPROCEDURE DIAGNOSIS: Mild coronary artery disease. MEDICATIONS 1. Nitro 200 micrograms 2. Verapamil 2.5 milligrams. 3. Heparin 3200 units. 4. Versed 0.5 milligrams. 5. Fentanyl 25 micrograms. CONTRAST USED: 50 mL. FLUOROSCOPY: 5.8 minutes. SEDATION: Moderate sedation 15 minutes. PROCEDURAL SUMMARY: Shiela Kim is a pleasant 60-year-old female who originally saw me in the office for preoperative risk assessment for vascular surgery. Because of this, she underwent a pharmacologic nuclear stress testing which showed possible anterior ischemia. Because of this, she was recommended cardiac catheterization. Risks, benefits and alternatives were explained to her and she consented as such. DESCRIPTION OF THE PROCEDURE IN DETAIL: She was brought to the lab and prepped in the usual sterile fashion. The right radial artery was accessed using a modified Seldinger technique and placement of a 5/6 [place] slender sheath. This was easily aspirated and flushed. The JR-4 catheter was taken up over a J-wire into the left ventricle for measurement of left ventricular end-diastolic pressures. This was then pulled back across the aortic valve showing no significant gradient of aortic stenosis. The JR-4 catheter was used for selective angiography of the right coronary system. This was exchanged out for a JL-3.5 catheter which was used for selective angiography of the left coronary system. JL-3.5 catheter was then removed over a J-wire. A TR band was placed over the radial arteriotomy site for hemostasis. The patient left the technology lab teacher cardiovascularly stable. FINDINGS: 1. Left main: The left main is normal-appearing with adequate reflux. There is no significant disease. It bifurcates into an left anterior descending and circumflex artery. 2. Left anterior descending: The left anterior descending is a normal-appearing vessel with 10% disease proximally. After a second diagonal it has a 30% lesion. Overall, there is mild tortuosity most likely due to hypertension throughout. 3. Left circumflex: The left circumflex is a normal sized vessel with no significant disease. It gives off three major obtuse marginals with no significant disease. Overall the obtuse marginals have significant tortuosity due to long-term hypertension. 4. Right coronary artery: The right coronary artery is a dominant vessel by nature. It has a 20% lesions in the proximal portion but otherwise mild luminal irregularities. Left ventricular end-diastolic pressure is 6. IMPRESSION: 1. High-risk preoperative surgery evaluation. 2. Abnormal stress test. 3. Mild coronary artery disease by cardiac catheterization. 4. Hypertension. RECOMMENDATIONS: 1. Ms. Kim appears to have mild coronary artery disease by cardiac catheterization. She will be watched for the next three hours and discharged home when stable. 2. As far as surgery goes, she may proceed as an intermediate risk. Cardiac risk assessment will be sent to Dr. Juan A Sweeney. 3. I did instruct her that if possible she should continue on an aspirin 81 mg as possible as she does carry a history of coronary artery disease and peripheral artery disease. Thank you for allowing me to see Shiela Conn. If there are any questions, please do not hesitate to call. Miah Anderson DO VGP/JCC /4:04 PM /6:54 PM
== END 2016-09-11 14:00 | disposition home or self-care (01) ==
LOC: HDOC 07:26 → HDIC 07:27 → HDOC 14:00
PROVIDERS: ATTEND Nuclear Medicine Nuclear Cardiology
DX: I25.10 Atherosclerotic heart disease of native coronary artery without angina pectoris (principal); I10 Essential (primary) hypertension; I73.9 Peripheral vascular disease, unspecified; E11.9 Type 2 diabetes mellitus without complications; Z72.0 Tobacco use; Z79.84 Long term (current) use of oral hypoglycemic drugs
CPT/HCPCS: 80048; 85025; 85610; 85730; 93005; 93454; C1769; C1893; J1644; J2250; J3010; Q9967